=== PATIENT | male | born 1980 | race Caucasian/White ===

== ENCOUNTER 2023-05-14 19:45 | Inpatient (IN) | payer OTHER, SELFPAY ==
[2023-05-14] VITALS (17 sets, daily range): BP systolic 133–159; BP diastolic 77–101; PULSE 92–107; TEMP 37.4; O2SAT 96–99; BMI 37.9
--- NOTE | 2023-05-14 20:03 | ECG_ITS ---
The [facility] Test Date: 2023-05-14 Pat Name: CELNIA NORRIS Department: Room: - Gender: Male Director Of Infection Control: : 1980 Requested By: ALYSHA BEST Order Number: [id number] Reading MD: ALYSHA BEST Measurements Intervals [place] Rate: 101 P: 40 OR: 154 QRS: -5 QRSD: 88 T: -13 QT: 300 QTc: 358 Interpretive Statements 1120 Sinus tachycardia 5222 Moderate voltage criteria for LVH, may be normal variant T wave inversions in inf leads - III and aVF, possible inf wall ischemia 9150 abnormal ECG No previous ECG available for comparison Electronically Signed On 05-15-2023 5:22:53 EDT by ALYSHA BEST
--- NOTE | 2023-05-14 21:28 | CT_ITS ---
[address] [address] Patient Name: CELINA NORRIS MRN: [id number] date: 1980 Sex: M Assigned Patient Location: ER Current Patient Location: ER Accession/Order Number: [id number] Exam Date: 05/14/2023 21:50 Report Date: 05/14/2023 22:50 At the request of: FABIO SAHNI Procedure: CT abdomen pelvis w con CT ABDOMEN AND PELVIS WITH CONTRAST: INDICATION: Upper abd pain. COMPARISON: Right upper quadrant ultrasound 05/19/2021.. TECHNIQUE: Helical CT images of the abdomen and pelvis were obtained after the administration of intravenous contrast. Dose reduction techniques were achieved by using automated exposure control and/or adjustment of mA and/or kV according to patient size and/or use of iterative reconstruction technique. FINDINGS: LOWER CHEST: Mild bibasilar atelectasis. LIVER: Mild to moderate fatty infiltration. GALLBLADDER AND BILIARY SYSTEM: Normal. SPLEEN: Normal. PANCREAS: Mild fatty replacement of the pancreatic head. There is mild peripancreatic stranding around the pancreatic head and proximal body.. ADRENAL GLANDS: Normal. KIDNEYS AND URETERS: Normal. VASCULATURE: Diffuse atherosclerotic calcification. There is a filling defect within the splenic vein near the portosplenic confluence, extending into the main portal vein and the left and right portal veins consistent with thrombosis. RETROPERITONEUM AND LYMPH NODES: Normal, with no lymphadenopathy. GASTROINTESTINAL TRACT/MESENTERY: Possible mild duodenal wall thickening with adjacent fat stranding suspicious for duodenitis. Multiple diverticula in the colon with no acute diverticulitis. No ascites. Normal appendix. BLADDER: Normal. REPRODUCTIVE SYSTEM: Normal prostate. BODY WALL: Moderate fat-containing umbilical hernia. BONES: Bilateral pars defects at L5 with grade 1 anterolisthesis at L5-S1. CT/CT abdomen pelvis w con IMPRESSION: 1. Portal and splenic vein thrombosis as described above. This is favored to be secondary to acute pancreatitis as there is mild peripancreatic fat stranding also noted. There is no evidence of pancreatic necrosis. 2. Mild duodenal wall thickening suspicious for reactive or less likely primary duodenitis. 3. Fatty liver. 4. Fat-containing umbilical hernia. 5. Colonic diverticulosis. 6. Grade 1 anterolisthesis at L5-S1 due to pars defects. Electronically authenticated by: DULCE ZAIDI Date: 05/14/2023 22:50
--- NOTE | 2023-05-14 21:28 | XR_ITS ---
The [address] [address] Patient Name: CELINA NORRIS MRN: [id number] date: 1980 Sex: M Assigned Patient Location: ER Current Patient Location: ER Accession/Order Number: [id number] Exam Date: 05/14/2023 21:50 Report Date: 05/14/2023 22:34 At the request of: FABIO SAHNI Procedure: XR chest 1V EXAM: XR chest 1V HISTORY: SOB and epigastric pain for few days. COMPARISON: No comparison chest imaging available at the time of dictation. TECHNIQUE: Single frontal view chest x-ray FINDINGS: Mild linear lung atelectasis at the bilateral lower lung. No lung consolidation, large pleural effusion, pneumothorax, or acute bony abnormality. Cardiac size is unremarkable. XR/XR chest 1V IMPRESSION: No radiographic evidence for acute chest abnormality. Electronically authenticated by: LESA GONZALEZ Date: 05/14/2023 22:34
--- NOTE | 2023-05-14 21:29 | ED_ITS ---
HPI - Abdominal Pain General Chief Complaint: Abdominal Pain Stated Complaint: CHEST PAIN/ ABD PAIN Time Seen by Provider: 05/14/23 21:15 Source: patient Mode of arrival: walk-in History of Present Illness HPI narrative: 43-year-old male presents for epigastric abdominal pain. This started 4 to 5 days ago. He was seen by his PCP who diagnosed a UTI and started him on Levaquin. The pain in the epigastric area has gotten worse and he has a small amount of pain in the bilateral flank area as well. No injury. He gets short of breath easily with exertion. No fever vomiting constipation or diarrhea. He does not complain of cough or fever. Related Data Allergies Allergy/AdvReac Type Severity Reaction Status Date / Time No Known Drug Allergies Allergy Verified 05/14/23 20:01 Review of Systems ROS Narrative A ten point review of systems is negative except as noted above. Exam Narrative Exam Narrative: Nurses note and vital signs reviewed and patient is not hypoxic. General: The patient appears well and in no apparent distress. Patient is resting comfortably on cart. Skin: Warm, dry, no pallor noted. There is no rash noted. Head: Normocephalic, atraumatic Eye: Normal conjunctiva, no drainage Ears, Nose, Mouth, and Throat: oral mucosa is moist. Nares patent. Cardiovascular: Regular Rate and Rhythm Respiratory: Patient is in no distress, no accessory muscle use, lungs are clear to auscultation, no wheezing, rales or rhonchi Back: non-tender GI: Tender in the epigastric area and to a lesser degree in the right upper quadrant. No masses. Musculoskeletal: The patient has no evidence of calf tenderness, no pitting edema, symmetrical pulses noted bilaterally Neurological: A&O, normal speech Psychiatric: Cooperative Constitutional Vital Signs, click to edit/add: Last Vital Signs Temp 99.4 F 05/14/23 19:52 Pulse 98 H 05/14/23 23:00 Resp 20 05/14/23 21:14 BP 137/81 05/14/23 23:00 Pulse Ox 97 05/14/23 23:00 O2 Del Method Room Air 05/14/23 21:14 Course Vital Signs Vital signs: Vital Signs Temperature 99.4 F 05/14/23 19:52 Pulse Rate 92 H 05/14/23 19:52 Blood Pressure 159/101 H 05/14/23 19:52 Pulse Oximetry 97 05/14/23 19:52 Oxygen Delivery Method Room Air 05/14/23 19:52 Temperature 99.4 F 05/14/23 19:52 Pulse Rate 98 H 05/14/23 23:00 Respiratory Rate 20 05/14/23 21:14 Blood Pressure 137/81 05/14/23 23:00 Pulse Oximetry 97 05/14/23 23:00 Oxygen Delivery Method Room Air 05/14/23 21:14 MDM - Abdominal Pain MDM Narrative Medical decision making narrative: CAT scan per radiologist shows portal vein thrombosis as well as mild pancreatitis and mild duodenitis. Amylase and lipase are normal. LFTs are normal, the total bilirubin is 1.6. Case discussed with Dr. Rm. He suggested that the patient would be able to be admitted here on a heparin drip. I spoke to Dr. Orellana who requested the patient be transferred to tertiary care facility. Family has requested transfer to [facility] and the patient is stable and agreeable for transfer. I spoken to the hospitalist there who accepts the patient. Differential Diagnosis Differential diagnosis: Likely abdominal pain, acute appendicitis, calculus of kidney, constipation, diverticulitis, gastroenteritis, pancreatitis and small bowel obstruction Lab Data Attestation: I reviewed the patient's lab results. Labs: Lab Results 05/14/23 05/14/23 Range/Units 21:33 21:35 WBC 12.5 H (4.0-11.0) 10^3/uL RBC 5.53 (4.70-6.10) 10^6/uL Hgb 15.2 (14.0-18.0) g/dL Hct 46.6 (42.0-54.0) % MCV 84.3 (80.0-94.0) fL MCH 27.5 (25.9-34.0) pg MCHC 32.6 (29.9-35.2) g/dL RDW 13.2 (11.0-15.0) % Plt Count 228 (150-450) 10^3/uL MPV 9.9 (9.5-13.5) fL Neut % (Auto) 61.3 (43.0-75.0) % Lymph % (Auto) 26.5 (20.5-60.0) % [place] % (Auto) 10.8 (1.7-12.0) % Eos % (Auto) 0.6 L (0.9-7.0) % Baso % (Auto) 0.6 (0.2-2.0) % Neut # (Auto) 7.6 H (1.4-6.5) 10^3/uL Lymph # (Auto) 3.3 (1.2-3.8) 10^3/uL [place] # (Auto) 1.3 H (0.3-0.8) 10^3/uL Eos # (Auto) 0.1 (0.0-0.7) 10^3/uL Baso # (Auto) 0.1 (0.0-0.1) 10^3/uL Abs Immat Gran (auto) 0.03 (0.00-0.03) 10^3/uL Imm/Tot Granulo (auto) 0.2 (0.0-0.5) % PT 10.9 (9.0-11.6) sec INR 1.03 APTT 28.2 (22.3-36.2) sec Sodium 140 (136-145) mmol/L Potassium 3.9 (3.5-5.1) mmol/L Chloride 103 (98-107) mmol/L Carbon Dioxide 26.6 (21.0-32.0) mmol/L Anion Gap 14.3 BUN 14.0 (7.0-18.0) mg/dL Creatinine 1.01 (0.70-1.30) mg/dL Est GFR ( Amer) >60 (>=60) Est GFR (Non-Af Amer) >60 (>=60) BUN/Creatinine Ratio 13.9 Glucose 100 (74-106) mg/dL Lactate 0.9 (0.4-2.0) mmol/L Calcium 9.5 (8.5-10.1) mg/dL Total Bilirubin 1.6 H (0.2-1.0) mg/dL Direct Bilirubin 0.3 H (0.0-0.2) mg/dL AST 22 (15-37) U/L ALT 53 (16-63) U/L Alkaline Phosphatase 80 (46-116) U/L Troponin I High Sens <4.0 L (4.0-76.1) pg/mL Total Protein 7.4 (6.4-8.2) g/dL Albumin 3.2 L (3.4-5.0) g/dL Globulin 4.2 g/dL Albumin/Globulin Ratio 0.8 Amylase 39 (25-115) U/L Lipase 21.0 (16.0-77.0) U/L Urine Color Yellow (YELLOW) Urine Clarity Clear (CLEAR) Urine pH 6.5 (5.0-9.0) Ur Specific [place] >=1.030 A (1.005-1.025) Urine Protein Negative (NEG/TRACE) mg/dL Urine Glucose (UA) Negative (NEGATIVE) mg/dL Urine Ketones Trace A (NEGATIVE) mg/dL Urine Occult Blood Negative (NEGATIVE) Urine Nitrite Negative (NEGATIVE) Urine Bilirubin Negative (NEGATIVE) Urine Urobilinogen >=8.0 (0.2-1.0) EU/dL Ur Leukocyte Esterase Negative (NEGATIVE) Urine RBC None seen (0-2) #/HPF Urine WBC None seen (NONE SEEN) #/HPF Ur Squamous Epith Cells None seen (NONE/RARE) #/LPF Urine Crystals None seen (None Seen) #/HPF Urine Bacteria None seen (NONE SEEN) #/HPF Urine Casts None seen (NONE SEEN) #/LPF Urine Mucus Small A (NONE SEEN) Ur Culture Indicated? No Imaging Data CT scan - abdomen: Radiologist's impression: ITS Impressions Abdomen/Pelvis CT 05/14/23 21:28 IMPRESSION: 1. Portal and splenic vein thrombosis as described above. This is favored to be secondary to acute pancreatitis as there is mild peripancreatic fat stranding also noted. There is no evidence of pancreatic necrosis. 2. Mild duodenal wall thickening suspicious for reactive or less likely primary duodenitis. 3. Fatty liver. 4. Fat-containing umbilical hernia. 5. Colonic diverticulosis. 6. Grade 1 anterolisthesis at L5-S1 due to pars defects. Electronically authenticated by: DULCE ZAIDI Date: 05/14/2023 22:50 Chest X-Ray 05/14/23 21:28 IMPRESSION: No radiographic evidence for acute chest abnormality. Electronically authenticated by: LESA GONZALEZ Date: 05/14/2023 22:34 ECG Data Attestation: I personally reviewed and interpreted this ECG as follows: (EKG on my interpretation shows sinus rhythm with a rate of 101. No acute changes.) Critical Care Time Critical Care Time Critical Care Time: Yes Total Critical Care Time: 45 Attestation: Due to the high probability of sudden and clinically significant deterioration in the patient's condition he/she required the highest level of my preparedness to intervene urgently I provided critical care time including documentation time, medication orders and management, reevaluation, vital sign assessment, ordering and reviewing of lab tests, ordering and reviewing of x-ray studies, and admission orders. Aggregate critical care time is 45 minutes including only time during which I was engaged in work directly related to his/her care and did not include time spent treating other patients simultaneously. Discharge Plan Discharge Chief Complaint: Abdominal Pain Clinical Impression: Portal vein thrombosis, Pancreatitis, Duodenitis Patient Disposition: [facility] Time of Disposition Decision: 00:02 Discharge Location: [facility] Condition: Good Mode of Transportation: EMS
[2023-05-14 21:48] LABS: Basophils Absolute Auto 0.1 10^3/uL (0.0-0.1); Basophils Percent Auto 0.6 % (0.2-2.0); Eosinophils Absolute Auto 0.1 10^3/uL (0.0-0.7); Eosinophils Percent Auto 0.6 % (0.9-7.0); Hematocrit 46.6 % (42.0-54.0); Hemoglobin 15.2 g/dL (14.0-18.0); Immature Granulocytes Abs Auto 0.03 10^3/uL (0.00-0.03); Immature Granulocytes Pct Auto 0.2 % (0.0-0.5); Lymphocytes Absolute Auto 3.3 10^3/uL (1.2-3.8); Lymphocytes Percent Auto 26.5 % (20.5-60.0); Mean Corpuscular HGB Conc 32.6 g/dL (29.9-35.2); Mean Corpuscular Hemoglobin 27.5 pg (25.9-34.0); Mean Corpuscular Volume 84.3 fL (80.0-94.0); Mean Platelet Volume 9.9 fL (9.5-13.5); Monocytes Absolute Auto 1.3 10^3/uL (0.3-0.8); Monocytes Percent Auto 10.8 % (1.7-12.0); Neutrophils Absolute Auto 7.6 10^3/uL (1.4-6.5); Neutrophils Percent Auto 61.3 % (43.0-75.0); Platelet Count 228 10^3/uL (150-450); Red Blood Count 5.53 10^6/uL (4.70-6.10); Red Cell Distribution Width 13.2 % (11.0-15.0); White Blood Count 12.5 10^3/uL (4.0-11.0)
[2023-05-14 21:49] LABS: Bilirubin Urine NEGATIVE (NEGATIVE); Blood Urine NEGATIVE (NEGATIVE); Clarity Urine CLEAR (CLEAR); Color Urine YELLOW (YELLOW); Glucose Urine UA NEGATIVE (NEGATIVE); Ketones Urine TRACE mg/dL (NEGATIVE); Leukocyte Esterase Urine NEGATIVE (NEGATIVE); Nitrite Urine NEGATIVE (NEGATIVE); Protein Urine NEGATIVE (NEG/TRACE); Specific Gravity Urine >=1.030 (1.005-1.025); Urobilinogen Urine >=8.0 EU/dL (0.2-1.0); pH Urine 6.5 (5.0-9.0)
[2023-05-14 21:59] LABS: RBC Urine NONE SEEN #/HPF (0-2); WBC Urine NONE SEEN #/HPF (NONE SEEN)
[2023-05-14 22:00] LABS: Bacteria Urine NONE SEEN #/HPF (NONE SEEN); Cast Seen? NONE SEEN #/LPF (NONE SEEN); Crystals Seen? None Seen #/HPF (None Seen); Mucus Urine SMALL (NONE SEEN); Squamous Epithelial Cell Urine NONE SEEN #/LPF (NONE/RARE); Urine Culture Indicated NO
[2023-05-14 22:07] LABS: Alanine Aminotransferase 53 U/L (16-63); Albumin Globulin Ratio 0.8; Albumin Level 3.2 g/dL (3.4-5.0); Alkaline Phosphatase 80 U/L (46-116); Amylase 39 U/L (25-115); Aspartate Amino Transferase 22 U/L (15-37); Bilirubin Direct 0.3 mg/dL (0.0-0.2); Bilirubin Total 1.6 mg/dL (0.2-1.0); Globulin 4.2 g/dL; Total Protein 7.4 g/dL (6.4-8.2); Troponin I High Sensitivity <4.0 pg/mL (4.0-76.1)
[2023-05-14 22:09] LABS: Anion Gap 14.3; BUN Creatinine Ratio 13.9; Calcium 9.5 mg/dL (8.5-10.1); Carbon Dioxide 26.6 mmol/L (21.0-32.0); Chloride 103 mmol/L (98-107); Estimated GFR (African America >60 (>=60); Estimated GFR (Non-African Ame >60 (>=60); Glucose 100 mg/dL (74-106); Potassium 3.9 mmol/L (3.5-5.1); Sodium 140 mmol/L (136-145)
[2023-05-14 23:17] LABS: INR 1.03; Partial Thromboplastin Time 28.2 sec (22.3-36.2); Prothrombin Time 10.9 sec (9.0-11.6)
[2023-05-14 23:22] LABS: Lactate/Lactic Acid 0.9 mmol/L (0.4-2.0)
[2023-05-14] MEDS: HEPARIN SODIUM (PORCINE) 5,000 UNIT/ML VIAL 8000 UNIT IV (23:31)
[2023-05-14] MEDS: HEPARIN SODIUM,PORCINE/D5W 25,000 UNIT/500 ML IV.SOLN 30 UNIT IV (23:32)
[2023-05-15] VITALS (71 sets, daily range): BP systolic 115–147; BP diastolic 62–122; PULSE 59–121; TEMP 37.2–38.1; O2SAT 89–97; BMI 38.7
[2023-05-15] MEDS: BUTALB/ACETAMINOPHEN/CAFFEINE 50-325-40MG TABLET 1 TAB PO (00:29)
[2023-05-15 06:20] LABS: PTT Heparin Monitor 39.2 sec (48.2-68.6)
--- NOTE | 2023-05-15 10:07 | US_ITS ---
The [address] [address] Patient Name: CELINA NORRIS MRN: [id number] date: 1980 Sex: M Assigned Patient Location: ER Current Patient Location: [place] Accession/Order Number: [id number] Exam Date: 05/15/2023 10:08 Report Date: 05/15/2023 11:13 At the request of: BENJAMIN CROWDER Procedure: US right upper quadrant EXAMINATION: US right upper quadrant HISTORY: Portal hypertension COMPARISON: CT abdomen pelvis 05/14/2023 TECHNIQUE: Transabdominal evaluation of the right upper quadrant. FINDINGS: LIVER: Increased echogenicity suggestive of fatty infiltration. Color Doppler demonstrates patent hepatic veins. PORTAL VEIN: Thrombosed main portal vein with no appreciable blood flow on duplex and color Doppler. Thrombus extends into superior mesenteric vein and splenic vein at their confluence. GALLBLADDER: No visible gallstones, wall thickening, or pericholecystic free fluid. Negative sonographic Fletcher's sign. BILIARY: No abnormal dilation or stones. Common bile duct diameter is within normal limits. PANCREASE: Not well seen. No visible mass, abnormal atrophy, or duct dilation. KIDNEY: No hydronephrosis. No visible mass or stones. Size: 12.0 x 6.0 x 6.67 m US/US right upper quadrant IMPRESSION: 1. Thrombosed, completely occluded main portal vein with clot extending slightly retrograde into the main portal vein and splenic vein. 2. No appreciable enlarged collateral vessels, splenic vein enlargement, or enlarged spleen to suggest significant or long-standing portal hypertension. Electronically authenticated by: DULCE STUBBS Date: 05/15/2023 11:13
--- NOTE | 2023-05-15 10:32 | P.HP_ITS ---
HPI H&P: HPI History of Present Illness Chief complaint: CHEST PAIN/ ABD PAIN Narrative: Patient was seen and evaluated in the office not long ago, felt to have a UTI. Placed on antibiotics. Symptoms progressed and late last night presented to the emergency room. In ER patient found to have thrombosed portal and splenic veins. Case was discussed with possible transfer. Vascular was okay with patient staying here on heparin drip. When I saw the patient in the emergency room, his pain was actually somewhat improved. Denies any other complaints other than just an abdominal pressure type sensation. Opioid HPI Opioid Management Most Recent Opioid Data: Last Pain Scale 4 05/15/23 11:53 Last Pain Assessment 05/15/23 18:00 Last ORT Total Score 1 05/15/23 11:38 Last ORT Risk Category Low Risk 05/15/23 11:38 PFSH PFSH Medical History (Updated 05/15/23 @ 11:31 by Kae Mata) Orbital floor (blow-out), closed fracture ?S02.30XA - Fracture of orbital floor, unspecified side, initial encounter for closed fracture (ICD-10) Family History (Updated 05/15/23 @ 11:51 by Kae Mata) Mother Family history of CHF (congestive heart failure) Family history of cancer Family history of hypertension Family history of blood clots Sister Family history of diabetes mellitus Son Family history of diabetes mellitus Grandfather Family history of myocardial infarction Uncle Family history of blood clots Social History (Updated 05/15/23 @ 11:25 by Kae Mata) Within the past year, how often did you have a drink containing alcohol: never Score interpretation: A score less than 4 is consistent with normal alcohol consumption. 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 Known occupational exposures/hazards: No Highest level of school completed/degree received: some college, no degree Are you now , , , , never or living with a partner: In a typical week, how many times do you talk on the telephone with family, friends, or neighbors: 3 or more times per week How often do you get together with friends or relatives: 3 or more times per week How often do you attend jewish or samaritan services: 4 or more times per year Do you belong to any clubs or organizations such as jewish groups unions, fraYotpo or athletic groups, or school groups: yes Total score: 4 Score interpretation: A score of greater than or equal to 2 indicates the lowest level of social isolation. Little interest or pleasure in doing things: not at all Feeling down, depressed, or hopeless: not at all Feel stressed/tense/nervous/anxious/difficulty sleeping: only a little Due to disability, difficulty making decisions: No Do you think of yourself as: straight/heterosexual Gender Identity: male Meds Home Medications and Allergies Home Medications ?Medication ?Instructions ?Recorded ?Confirmed ?Type levofloxacin 750 mg tablet 750 mg PO DAILY 05/15/23 05/15/23 History pantoprazole 40 mg tablet,delayed 40 mg PO DAILY 05/15/23 05/15/23 History release Allergies Allergy/AdvReac Type Severity Reaction Status Date / Time No Known Drug Allergies Allergy Verified 05/14/23 20:01 Exam Constitutional Vital Signs, click to edit/add: Last Vital Signs Temp 99.4 F 05/14/23 19:52 Pulse 93 H 05/15/23 09:00 Resp 20 05/14/23 21:14 BP 119/86 05/15/23 08:30 Pulse Ox 90 L 05/15/23 04:31 O2 Del Method Room Air 05/14/23 21:14 Documenting provider has reviewed patient's vital signs: yes Common normals: no apparent distress Chest Common normals: inspection of chest normal Respiratory Common normals: normal respiratory effort and no retractions GI Common normals: Normal to inspection, nondistended, normoactive bowel sounds present, soft to palpation and non-tender (Mild upper abdominal tenderness, no rebound tenderness) Palpation: no hepatosplenomegaly Results Labs Labs: Short CBC 05/14/23 Range/Units 21:35 WBC 12.5 H (4.0-11.0) 10^3/uL Hgb 15.2 (14.0-18.0) g/dL Hct 46.6 (42.0-54.0) % Plt Count 228 (150-450) 10^3/uL BMP 05/14/23 21:35 Sodium 140 Potassium 3.9 Chloride 103 Carbon Dioxide 26.6 BUN 14.0 Creatinine 1.01 Glucose 100 Calcium 9.5 Liver Function 05/14/23 Range/Units 21:35 Total Bilirubin 1.6 H (0.2-1.0) mg/dL Direct Bilirubin 0.3 H (0.0-0.2) mg/dL AST 22 (15-37) U/L ALT 53 (16-63) U/L Alkaline Phosphatase 80 (46-116) U/L Albumin 3.2 L (3.4-5.0) g/dL Urine 05/14/23 Range/Units 21:33 Urine Color Yellow (YELLOW) Urine Clarity Clear (CLEAR) Urine pH 6.5 (5.0-9.0) Ur Specific [place] >=1.030 A (1.005-1.025) Urine Protein Negative (NEG/TRACE) mg/dL Urine Glucose (UA) Negative (NEGATIVE) mg/dL Assessment and Plan Assessment and Plan (1) Portal vein thrombosis: (2) Pancreatitis: (3) Duodenitis: Plan Sinus tachycardia, uncontrolled hypertension, leukocytosis, hyperbilirubinemia secondary to portal and splenic vein thrombosis-possibly related to pancreatitis with fluid noted around the pancreas although amylase and lipase are negative. Blood cultures are obtained in ER. With the leukocytosis and high risk for infection, place patient on IV antibiotics. Strict n.p.o. status for now. Fatty liver disease-follows an outpatient Moderate protein calorie malnutrition-we will follow as an outpatient Inpatient criteria: Patient with portal vein and splenic vein thrombosis, will consult to vascular and hematology, medically necessary treatment will span 2 midnights. High risk for infection and sepsis.
[2023-05-15 13:12] LABS: Ammonia <10 umol/L (11-32)
[2023-05-15 13:15] LABS: Chol HDL Ratio 4.1; Cholesterol 197 mg/dL (<=200); HDL Cholesterol 48 mg/dL (40-60); LDL Cholesterol Calculated 126.8 mg/dL; Triglycerides 111 mg/dL (<=150); VLDL CHOLESTEROL 22.2 mg/dL
[2023-05-15 13:20] LABS: Lactate/Lactic Acid 1.1 mmol/L (0.4-2.0)
[2023-05-15] MEDS: LACTATED RINGER'S SOLUTION 1,000 ML 100 ML IV (14:11)
[2023-05-15] MEDS: 0.9 % SODIUM CHLORIDE 250 ML 10 ML IV (14:18)
[2023-05-15] MEDS: PIPERACILLIN SODIUM/TAZOBACTAM 3.375 GM in 0.9 % SODIUM CHLORIDE 50 ML IV ×2 (14:19→22:37)
[2023-05-15] MEDS: PANTOPRAZOLE SODIUM 40 MG VIAL IV (14:26)
--- NOTE | 2023-05-15 14:41 | W.PM.PHARM ---
Pharmacy Note Narrative: Pharmacy consulted for heparin drip protocol. Patient started on heparin drip in the ED at the max initial dose of 30 mls/hr. Dose was increased to 32 mls/hr at first PTT check (39), 2nd ptt was at 1130am and was still low at 37 so drip was increased to 34 mls/hr. Explained to Kae, patient's nurse, to follow protocol attached to order and paper that was handed to her. I have asked her to call us with any questions at the next PTT draw.
[2023-05-15 16:07] LABS: Bilirubin Urine SMALL (NEGATIVE); Blood Urine NEGATIVE (NEGATIVE); Clarity Urine CLEAR (CLEAR); Color Urine DK. YELLOW (YELLOW); Glucose Urine UA NEGATIVE (NEGATIVE); Ketones Urine TRACE mg/dL (NEGATIVE); Leukocyte Esterase Urine NEGATIVE (NEGATIVE); Nitrite Urine NEGATIVE (NEGATIVE); Protein Urine NEGATIVE (NEG/TRACE); Specific Gravity Urine >=1.030 (1.005-1.025)
[2023-05-15 16:08] LABS: Bacteria Urine NONE SEEN #/HPF (NONE SEEN); Crystals Seen? None Seen #/HPF (None Seen); Mucus Urine NONE SEEN (NONE SEEN); RBC Urine 0-2 #/HPF (0-2); Squamous Epithelial Cell Urine NONE SEEN #/LPF (NONE/RARE); WBC Urine NONE SEEN #/HPF (NONE SEEN)
[2023-05-15 16:09] LABS: Cast Seen? NONE SEEN #/LPF (NONE SEEN); Urine Culture Indicated ALREADY ORDERED
[2023-05-15 18:38] LABS: PTT Heparin Monitor 29.2 sec (48.2-68.6)
[2023-05-15] MEDS: HEPARIN SODIUM,PORCINE/D5W 25,000 UNIT/500 ML IV.SOLN 37 UNIT IV (18:53)
--- NOTE | 2023-05-15 19:20 | PM.GSHP ---
History of Present Illness History of Present Illness Chief complaint: CHEST PAIN/ ABD PAIN Narrative: 43 Male with portal and splenic vein thrombosis-possibly related to pancreatitis with fluid noted around the pancreas although amylase and lipase are negative. Blood cultures are obtained in ER. Did have low-grade fever last night repeat blood cultures were obtained. His white blood cell count has returned to normal today. Amylase and lipase all normal. At this point we will progress patient's diet to clear liquids for today. If stable tomorrow likely advance diet and discharge on Eliquis. C CA 19 - 9 is negative still uncertain etiology for cause of his portal thrombosis. Review of Systems ROS Status of ROS 10 or more systems reviewed and unremarkable except as noted in history and below [facility] Medical History (Updated 05/15/23 @ 11:31 by Kae Mata) Orbital floor (blow-out), closed fracture ?S02.30XA - Fracture of orbital floor, unspecified side, initial encounter for closed fracture (ICD-10) Family History (Updated 05/15/23 @ 11:51 by Kae Mata) Mother Family history of CHF (congestive heart failure) Family history of cancer Family history of hypertension Family history of blood clots Sister Family history of diabetes mellitus Son Family history of diabetes mellitus Grandfather Family history of myocardial infarction Uncle Family history of blood clots Social History (Updated 05/15/23 @ 11:25 by Kae Mata) Within the past year, how often did you have a drink containing alcohol: never Score interpretation: A score less than 4 is consistent with normal alcohol consumption. 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 Known occupational exposures/hazards: No Highest level of school completed/degree received: some college, no degree Are you now , , , , never or living with a partner: In a typical week, how many times do you talk on the telephone with family, friends, or neighbors: 3 or more times per week How often do you get together with friends or relatives: 3 or more times per week How often do you attend yarsanism or jewish services: 4 or more times per year Do you belong to any clubs or organizations such as yarsanism groups unions, fraternal or athletic groups, or school groups: yes Total score: 4 Score interpretation: A score of greater than or equal to 2 indicates the lowest level of social isolation. Little interest or pleasure in doing things: not at all Feeling down, depressed, or hopeless: not at all Feel stressed/tense/nervous/anxious/difficulty sleeping: only a little Due to disability, difficulty making decisions: No Do you think of yourself as: straight/heterosexual Gender Identity: male Meds Home Medications and Allergies Home Medications ?Medication ?Instructions ?Recorded ?Confirmed ?Type levofloxacin 750 mg tablet 750 mg PO DAILY 05/15/23 05/15/23 History pantoprazole 40 mg tablet,delayed 40 mg PO DAILY 05/15/23 05/15/23 History release apixaban 5 mg tablet (Eliquis) 10 mg (2 x 5 mg) PO BID #60 tabs 05/17/23 Rx Allergies Allergy/AdvReac Type Severity Reaction Status Date / Time No Known Drug Allergies Allergy Verified 05/14/23 20:01 Exam Constitutional Vital Signs, click to edit/add: Last Vital Signs Temp 98.3 F 05/17/23 12:00 Pulse 86 05/17/23 12:00 Resp 18 05/17/23 12:00 BP 118/75 05/17/23 12:00 Pulse Ox 95 05/17/23 12:00 O2 Del Method Room Air 05/17/23 12:00 Common normals: no apparent distress, oriented x3 and no limitations GI Common normals: Normal to inspection, nondistended, normoactive bowel sounds present, soft to palpation, non-tender and no hepatosplenomegaly Results Results Chest x-ray: image reviewed Abdomen CT scan report/results: report reviewed and image reviewed CT scan - pelvis: report reviewed and image reviewed Assessment and Plan Assessment and Plan (1) Portal vein thrombosis: Assessment and Plan: Anticoagulation - Heparin gtt followed by Ana Paula on discharge Serial Exam Hypercoagulability work as an outpatient Will see him at my office here at [place] after discharge Discussed with Dr. العلي (2) Pancreatitis: (3) Duodenitis:
[2023-05-15] MEDS: ACETAMINOPHEN 500 MG TABLET 1000 MG PO (20:58)
[2023-05-16] VITALS (10 sets, daily range): BP systolic 102–138; BP diastolic 51–82; PULSE 85–99; TEMP 36.4–37.2; O2SAT 93–97
[2023-05-16 01:33] LABS: PTT Heparin Monitor 43.4 sec (48.2-68.6)
[2023-05-16 04:08] LABS: CA 19-9 4 U/mL (0-35)
[2023-05-16] MEDS: LACTATED RINGER'S SOLUTION 1,000 ML 100 ML IV ×2 (06:36→20:03)
[2023-05-16] MEDS: PIPERACILLIN SODIUM/TAZOBACTAM 3.375 GM in 0.9 % SODIUM CHLORIDE 50 ML IV ×2 (06:37→22:14)
[2023-05-16 07:47] LABS: Basophils Absolute Auto 0.1 10^3/uL (0.0-0.1); Basophils Percent Auto 0.7 % (0.2-2.0); Eosinophils Absolute Auto 0.1 10^3/uL (0.0-0.7); Hematocrit 42.1 % (42.0-54.0); Hemoglobin 13.7 g/dL (14.0-18.0); Immature Granulocytes Abs Auto 0.02 10^3/uL (0.00-0.03); Immature Granulocytes Pct Auto 0.2 % (0.0-0.5); Lymphocytes Absolute Auto 3.1 10^3/uL (1.2-3.8); Lymphocytes Percent Auto 30.3 % (20.5-60.0); Mean Corpuscular HGB Conc 32.5 g/dL (29.9-35.2); Mean Corpuscular Hemoglobin 27.3 pg (25.9-34.0); Mean Corpuscular Volume 83.9 fL (80.0-94.0); Mean Platelet Volume 10.1 fL (9.5-13.5); Monocytes Absolute Auto 1.2 10^3/uL (0.3-0.8); Monocytes Percent Auto 11.7 % (1.7-12.0); Neutrophils Absolute Auto 5.7 10^3/uL (1.4-6.5); Neutrophils Percent Auto 56.1 % (43.0-75.0); Platelet Count 200 10^3/uL (150-450); Red Blood Count 5.02 10^6/uL (4.70-6.10); Red Cell Distribution Width 13.2 % (11.0-15.0); White Blood Count 10.2 10^3/uL (4.0-11.0)
[2023-05-16 08:02] LABS: Ammonia 28 umol/L (11-32)
[2023-05-16 08:23] LABS: PTT Heparin Monitor 40.2 sec (48.2-68.6)
[2023-05-16 08:26] LABS: Alanine Aminotransferase 38 U/L (16-63); Albumin Globulin Ratio 0.7; Albumin Level 2.8 g/dL (3.4-5.0); Alkaline Phosphatase 70 U/L (46-116); Amylase 39 U/L (25-115); Anion Gap 13.2; Aspartate Amino Transferase 16 U/L (15-37); BUN Creatinine Ratio 12.2; Bilirubin Total 2.3 mg/dL (0.2-1.0); Calcium 9.1 mg/dL (8.5-10.1); Carbon Dioxide 27.4 mmol/L (21.0-32.0); Chloride 100 mmol/L (98-107); Estimated GFR (African America >60 (>=60); Estimated GFR (Non-African Ame >60 (>=60); Globulin 4.1 g/dL; Glucose 107 mg/dL (74-106); Potassium 3.6 mmol/L (3.5-5.1); Sodium 137 mmol/L (136-145); Total Protein 6.9 g/dL (6.4-8.2)
[2023-05-16] MEDS: HEPARIN SODIUM,PORCINE/D5W 25,000 UNIT/500 ML IV.SOLN 43 UNIT IV ×2 (08:49→20:03)
[2023-05-16] MEDS: ACETAMINOPHEN 500 MG TABLET 1000 MG PO ×2 (08:53→20:05)
--- NOTE | 2023-05-16 10:41 | P.PN_ITS ---
Progress Note: Subjective Subjective Interval history: Patient with significant more pressure in his upper abdomen. That really progressed but not really improved. Discussed this would not be expected to improve with the thrombus present. Does have a bit of a headache but has not had any caffeine intake for over a day. Exam Constitutional Vital Signs, click to edit/add: Last Vital Signs Temp 98.6 F 05/16/23 08:00 Pulse 96 H 05/16/23 08:00 Resp 18 05/16/23 08:00 BP 136/79 05/16/23 08:00 Pulse Ox 94 L 05/16/23 09:13 O2 Del Method Room Air 05/16/23 09:13 Documenting provider has reviewed patient's vital signs: yes Common normals: no apparent distress Chest Common normals: inspection of chest normal Respiratory Common normals: normal respiratory effort and no retractions GI Common normals: Normal to inspection, nondistended, normoactive bowel sounds present, soft to palpation and non-tender (Mild upper abdominal tenderness, no rebound tenderness) Palpation: no hepatosplenomegaly Progress Note: Objective Labs Labs: Short CBC 05/16/23 Range/Units 07:00 WBC 10.2 (4.0-11.0) 10^3/uL Hgb 13.7 L (14.0-18.0) g/dL Hct 42.1 (42.0-54.0) % Plt Count 200 (150-450) 10^3/uL BMP 05/16/23 07:00 Sodium 137 Potassium 3.6 Chloride 100 Carbon Dioxide 27.4 BUN 12.0 Creatinine 0.98 Glucose 107 H Calcium 9.1 Liver Function 05/16/23 Range/Units 07:00 Total Bilirubin 2.3 H (0.2-1.0) mg/dL AST 16 (15-37) U/L ALT 38 (16-63) U/L Alkaline Phosphatase 70 (46-116) U/L Albumin 2.8 L (3.4-5.0) g/dL Urine 05/15/23 Range/Units 15:43 Urine Color Dk. yellow (YELLOW) Urine Clarity Clear (CLEAR) Urine pH 6.0 (5.0-9.0) Ur Specific [place] >=1.030 A (1.005-1.025) Urine Protein Negative (NEG/TRACE) mg/dL Urine Glucose (UA) Negative (NEGATIVE) mg/dL Progress Note: A&P Assessment and Plan (1) Portal vein thrombosis: (2) Pancreatitis: (3) Duodenitis: Plan Admission Findings: Sinus tachycardia, uncontrolled hypertension, leukocytosis, hyperbilirubinemia secondary to portal and splenic vein thrombosis-possibly related to pancreatitis with fluid noted around the pancreas although amylase and lipase are negative. Blood cultures are obtained in ER. Did have low-grade fever last night repeat blood cultures were obtained. His white blood cell count has returned to normal today. Amylase and lipase all normal. At this point we will progress patient's diet to clear liquids for today. If stable tomorrow likely advance diet and discharge on Eliquis. Case discussed extensively with hematology and vascular. CA 19 - 9 is negative still uncertain etiology for cause of his portal thrombosis. With laboratory findings and CT findings I suspect the thrombus happened prior to the fluid collection around the pancreas. Only other thought is acute pancreatitis happened prior and amylase and lipase have improved since that initial onset Fatty liver disease-follows an outpatient Moderate protein calorie malnutrition-we will follow as an outpatient Inpatient criteria: Patient with portal vein and splenic vein thrombosis, will consult to vascular and hematology, medically necessary treatment will span 2 midnights. High risk for infection and sepsis. ?
--- NOTE | 2023-05-16 10:53 | CM.NOTE ---
Rounds made with Dr. العلي, pt continues on heparin drip. Vascular will evaluate pt today for further recommendations. No discharge today.
[2023-05-16 13:46] LABS: PTT Heparin Monitor 44.1 sec (48.2-68.6)
--- NOTE | 2023-05-16 14:02 | PC.NURSE ---
clear liquid diet
--- NOTE | 2023-05-16 14:09 | PC.NURSE ---
[id number] lab called to report critical ptt 44.1 adjusted medication per protocol with jarrell moralez rn
--- NOTE | 2023-05-16 15:34 | PC.NURSE ---
patient up ambulating in the hallway . Patient just got out of the shower. States he feels better than this am.
[2023-05-16] MEDS: PANTOPRAZOLE SODIUM 40 MG VIAL IV (20:03)
[2023-05-16 20:13] LABS: PTT Heparin Monitor 42.4 sec (48.2-68.6)
[2023-05-17] VITALS: BP 128/73; PULSE 83; TEMP 36.8; O2SAT 95
[2023-05-17 02:08] LABS: PTT Heparin Monitor 42.3 sec (48.2-68.6)
[2023-05-17 03:38] VITALS: BP 132/70; PULSE 87; TEMP 36.9; O2SAT 96
[2023-05-17 07:18] LABS: Basophils Absolute Auto 0.1 10^3/uL (0.0-0.1); Basophils Percent Auto 0.8 % (0.2-2.0); Eosinophils Absolute Auto 0.1 10^3/uL (0.0-0.7); Eosinophils Percent Auto 1.5 % (0.9-7.0); Hematocrit 39.9 % (42.0-54.0); Hemoglobin 13.1 g/dL (14.0-18.0); Immature Granulocytes Abs Auto 0.03 10^3/uL (0.00-0.03); Immature Granulocytes Pct Auto 0.3 % (0.0-0.5); Lymphocytes Absolute Auto 2.8 10^3/uL (1.2-3.8); Mean Corpuscular HGB Conc 32.8 g/dL (29.9-35.2); Mean Corpuscular Hemoglobin 27.6 pg (25.9-34.0); Mean Platelet Volume 10.1 fL (9.5-13.5); Monocytes Percent Auto 10.9 % (1.7-12.0); Neutrophils Percent Auto 55.5 % (43.0-75.0); Platelet Count 231 10^3/uL (150-450); Red Blood Count 4.75 10^6/uL (4.70-6.10); White Blood Count 9.1 10^3/uL (4.0-11.0)
[2023-05-17 07:32] LABS: Ammonia <10 umol/L (11-32)
[2023-05-17 07:37] LABS: Alanine Aminotransferase 36 U/L (16-63); Albumin Globulin Ratio 0.7; Albumin Level 2.8 g/dL (3.4-5.0); Alkaline Phosphatase 73 U/L (46-116); Amylase 40 U/L (25-115); Anion Gap 14.2; Aspartate Amino Transferase 15 U/L (15-37); BUN Creatinine Ratio 8.2; Bilirubin Total 1.4 mg/dL (0.2-1.0); Calcium 9.1 mg/dL (8.5-10.1); Carbon Dioxide 27.4 mmol/L (21.0-32.0); Chloride 101 mmol/L (98-107); Estimated GFR (African America >60 (>=60); Estimated GFR (Non-African Ame >60 (>=60); Globulin 4.3 g/dL; Glucose 99 mg/dL (74-106); Potassium 3.6 mmol/L (3.5-5.1); Sodium 139 mmol/L (136-145); Total Protein 7.1 g/dL (6.4-8.2)
[2023-05-17 08:00] VITALS: BP 119/73; PULSE 68; PULSE 89; TEMP 36.5; O2SAT 95
[2023-05-17 08:48] VITALS: O2SAT 94
--- NOTE | 2023-05-17 09:18 | P.DS_ITS ---
DS: Providers Provider Date of admission: 05/15/23 12:28 Primary care physician: Roberto العلي MD Consults: 05/15/23 12:13 Consult to Pharmacy Routine Consulting Provider: Reason for consultation: heparin sliding scale Has provider been notified: No 05/15/23 12:28 Consult to Vascular Surgery Routine Consulting Provider: Dariana Rm Reason for consultation: Portal vein thrombosis Has provider been notified: Yes 05/15/23 12:31 Consult to Oncology Routine Consulting Provider: Yanet Chandler Reason for consultation: Coagulopathy work up Has provider been notified: No DS: Diagnosis Discharge Diagnosis (1) Portal vein thrombosis: (2) Pancreatitis: (3) Duodenitis: Plan Admission Findings: Sinus tachycardia, uncontrolled hypertension, leukocytosis, hyperbilirubinemia secondary to portal and splenic vein thrombosis-possibly related to pancreatitis with fluid noted around the pancreas although amylase and lipase are negative. Blood cultures are obtained in ER. Did have low-grade fever last night repeat blood cultures were obtained. His white blood cell count has returned to normal today. Amylase and lipase all normal. At this point we will progress patient's diet to clear liquids for today. If stable tomorrow likely advance diet and discharge on Eliquis. Case discussed extensively with hematology and vascular. CA 19 - 9 is negative still uncertain etiology for cause of his portal thrombosis. With laboratory findings and CT findings I suspect the thrombus happened prior to the fluid collection around the pancreas. Only other thought is acute pancreatitis happened prior and amylase and lipase have improved since that initial onset Fatty liver disease-follows an outpatient Moderate protein calorie malnutrition-we will follow as an outpatient Inpatient criteria: Patient with portal vein and splenic vein thrombosis, will consult to vascular and hematology, medically necessary treatment will span 2 midnights. High risk for infection and sepsis. ? ? DS: Summary Hospital Course Hospital Course: Was seen and evaluated in the office with abdominal pain felt consistent with bladder infection was treated with antibiotics. Pain became worse and so presented to the emergency room. The emergency room found to have possible mild pancreatitis but portal and splenic vein thrombosis was noted as well. Case was discussed with vascular surgery who recommended placing patient on a heparin protocol. NPO. Serial abdominal exams. Throughout the hospitalization he had no acute abdominal findings. He did have a low-grade fever. At this point at the time of discharge all blood cultures have returned as negative. His white blood cell count has returned to normal. His amylase and lipase are normal after eating. At this point this morning he was transitioned to Eliquis. Tolerating breakfast and lunch he will be discharged home in improving condition. Medications see list. He is to follow-up with hematology, vascular and myself next week. Time Spent with Patient Time attestation: Total time spent providing and/or coordinating discharge services: Exam Constitutional Vital Signs, click to edit/add: Last Vital Signs Temp 98.4 F 05/17/23 03:38 Pulse 87 05/17/23 03:38 Resp 19 05/17/23 03:38 BP 132/70 05/17/23 03:38 Pulse Ox 94 L 05/17/23 08:48 O2 Del Method Room Air 05/17/23 08:48 Documenting provider has reviewed patient's vital signs: yes Common normals: no apparent distress Chest Common normals: inspection of chest normal Respiratory Common normals: normal respiratory effort and no retractions GI Common normals: Normal to inspection, nondistended, normoactive bowel sounds present, soft to palpation and non-tender (Mild upper abdominal tenderness, no rebound tenderness) Palpation: no hepatosplenomegaly DS: Data Data Completed and Pending Labs on day of discharge: Labs from last 24 hours 05/17/23 05/17/23 05/16/23 07:03 00:51 19:14 WBC 9.1 RBC 4.75 Hgb 13.1 L Hct 39.9 L MCV 84.0 MCH 27.6 MCHC 32.8 RDW 13.0 Plt Count 231 MPV 10.1 Neut % (Auto) 55.5 Lymph % (Auto) 31.0 [place] % (Auto) 10.9 Eos % (Auto) 1.5 Baso % (Auto) 0.8 Neut # (Auto) 5.0 Lymph # (Auto) 2.8 [place] # (Auto) 1.0 H Eos # (Auto) 0.1 Baso # (Auto) 0.1 Abs Immat Gran (auto) 0.03 Imm/Tot Granulo (auto) 0.3 PTT (Heparin Absorb) 42.3 L* 42.4 L* Sodium 139 Potassium 3.6 Chloride 101 Carbon Dioxide 27.4 Anion Gap 14.2 BUN 8.0 Creatinine 0.97 Est GFR ( Amer) >60 Est GFR (Non-Af Amer) >60 BUN/Creatinine Ratio 8.2 Glucose 99 Calcium 9.1 Total Bilirubin 1.4 H AST 15 ALT 36 Alkaline Phosphatase 73 Ammonia <10 L Total Protein 7.1 Albumin 2.8 L Globulin 4.3 Albumin/Globulin Ratio 0.7 Amylase 40 05/16/23 13:05 WBC RBC Hgb Hct MCV MCH MCHC RDW Plt Count MPV Neut % (Auto) Lymph % (Auto) [place] % (Auto) Eos % (Auto) Baso % (Auto) Neut # (Auto) Lymph # (Auto) [place] # (Auto) Eos # (Auto) Baso # (Auto) Abs Immat Gran (auto) Imm/Tot Granulo (auto) PTT (Heparin Absorb) 44.1 L* Sodium Potassium Chloride Carbon Dioxide Anion Gap BUN Creatinine Est GFR ( Amer) Est GFR (Non-Af Amer) BUN/Creatinine Ratio Glucose Calcium Total Bilirubin AST ALT Alkaline Phosphatase Ammonia Total Protein Albumin Globulin Albumin/Globulin Ratio Amylase Discharge Plan Discharge Disposition: Home, Self-Care Condition: Good Discharge Medications: New Eliquis 5 mg Tablet 10 mg PO BID Qty: 60 11RF Rx Instructions: 2 po BID for 6 days then 1 po BID Continued levofloxacin 750 mg tablet 750 mg PO DAILY Patient Comments: 05/10-05/19 pantoprazole 40 mg tablet,delayed release (/EC) 40 mg PO DAILY Print Language: Korean Patient Instructions: Apixaban (By mouth) (Eliquis), Pancreatitis (DC), Duodenitis (DC) Forms: Portal Instructions Follow Up Appointments: May 22 @ 1:45pm with Dr. Chandler [facility] [phone], [phone]. [phone] Please bring medications in their original bottles to this appt. May 24 @ 1:45pm with Dr. العلي [phone] Thurs. May 24 @ 3pm with Dr. Rm - please arrive at 2:45 [facility] [address] , [place] [phone] Discharge Date/Time: 05/17/23 15:44
--- NOTE | 2023-05-17 09:31 | CM.NOTE ---
Rounds made with Dr. العلي, pt will discharge to home today. Pt will start Eliquis and f/u with Dr. العلي.
[2023-05-17] MEDS: PIPERACILLIN SODIUM/TAZOBACTAM 3.375 GM in 0.9 % SODIUM CHLORIDE 50 ML IV (09:40)
[2023-05-17] MEDS: APIXABAN 5 MG TABLET 10 MG PO (09:40)
[2023-05-17 12:00] VITALS: BP 118/75; PULSE 86; TEMP 36.8; O2SAT 95
--- NOTE | 2023-05-17 16:05 | CM.NOTE ---
Discussed with pt about new home medication Eliquis and reason for taking medication. Pt was given 30 day free trial card and 10 dollar co-pay card. Pt verbalizes understanding of importance of taking medication. Educational paper also given to pt.
--- NOTE | 2023-05-23 15:03 | CM.DCFOLLOWU ---
1st attempt discharge follow up call, no answer on 05/23/23
--- NOTE | 2023-05-24 15:32 | CM.DCFOLLOWU ---
Person spoke with:patient How are you feeling? well How is your pain? no pain Did you understand your discharge instructions? yes Do you have any questions about your discharge instructions? no Were you given any prescriptions at discharge? yes Were you able to get your prescriptions filled? yes Do you understand how to take your medications as ordered? yes Do you have any questions about your follow up appointment and do you plan to keep your follow up appointment? no questions, reviewed follow ups with patient Is there anything else that you would like to discuss? Did ask about FMLA paperwork, he is going to reach out to Dr. العلي's office with questions Questions/Comments/Concerns/Other: N/A
== END 2023-05-17 15:44 | disposition home or self-care (01) | DRG 441 ==
LOC: ER 05-15 10:07 → MS 05-15 11:06
PROVIDERS: Emergency Medicine; Admitting Provider Family Medicine; Emergency Provider Emergency Medicine Emergency Medical Services; PCP Family Medicine; Visit Provider Family Medicine
DX: I81 Portal vein thrombosis (principal); K85.90 Acute pancreatitis without necrosis or infection, unspecified; E44.0 Moderate protein-calorie malnutrition; I82.890 Acute embolism and thrombosis of other specified veins; R50.9 Fever, unspecified; I10 Essential (primary) hypertension; K29.80 Duodenitis without bleeding; K76.0 Fatty (change of) liver, not elsewhere classified; Z68.38 Body mass index [BMI] 38.0-38.9, adult; Z87.891 Personal history of nicotine dependence; Z82.49 Family history of ischemic heart disease and other diseases of the circulatory system
CPT/HCPCS: 36415; 71045; 74177; 76705; 80048; 80053; 80061; 80076; 81001; 82140; 82150; 83605; 83690; 83880; 84484; 85025; 85610; 85730; 86301; 87040; 87086; 93005; 94667; 94668; 94761; 96365; 96366; 96367; 96368; 96375; 96376; 99285; Q9967

== ENCOUNTER 2023-05-23 07:35 | Outpatient (RCR) | payer OTHER, SELFPAY ==
[2023-05-25 15:08] LABS: Anticardiolipin Ab, IgG, Qn <9 GPL U/mL (0-14)
[2023-05-28 14:08] LABS: Beta-2 Glycoprotein I Ab, IgA <9 (0-25); Beta-2 Glycoprotein I Ab, IgG <9 (0-20); Beta-2 Glycoprotein I Ab, IgM <9 (0-32)
== END 2023-06-13 23:59 | disposition home or self-care (01) ==
LOC: INF 07:35
PROVIDERS: PCP Family Medicine; Visit Provider Internal Medicine Hematology & Oncology
DX: I81 Portal vein thrombosis (principal); D68.9 Coagulation defect, unspecified
CPT/HCPCS: 36415; 81241; 85210; 86146; 86147; 86148; G0463

== ENCOUNTER 2023-06-15 07:35 | Outpatient (RCR) | payer OTHER, SELFPAY | END 2023-07-14 23:59 | disposition home or self-care (01) | LOC: INF 07:35 | PROVIDERS: PCP Family Medicine; Visit Provider Internal Medicine Hematology & Oncology | DX: I81 Portal vein thrombosis (principal); D68.9 Coagulation defect, unspecified; Z87.891 Personal history of nicotine dependence; I82.890 Acute embolism and thrombosis of other specified veins | CPT/HCPCS: 81270; G0463 ==

== ENCOUNTER 2023-08-08 07:35 | Outpatient (RCR) | payer OTHER, SELFPAY | END 2023-08-09 10:21 | disposition home or self-care (01) | LOC: INF 07:35 | PROVIDERS: PCP Family Medicine; Visit Provider Internal Medicine Hematology & Oncology | DX: I81 Portal vein thrombosis (principal); D68.9 Coagulation defect, unspecified | CPT/HCPCS: G0463 ==

== ENCOUNTER 2023-11-14 07:26 | Outpatient (RCR) | payer OTHER, SELFPAY ==
[2023-11-14 09:31] LABS: Basophils Percent Auto 0.8 % (0.2-2.0); Eosinophils Absolute Auto 0.1 10^3/uL (0.0-0.7); Eosinophils Percent Auto 1.7 % (0.9-7.0); Hematocrit 46.5 % (42.0-54.0); Hemoglobin 15.7 g/dL (14.0-18.0); Immature Granulocytes Abs Auto 0.01 10^3/uL (0.00-0.03); Immature Granulocytes Pct Auto 0.2 % (0.0-0.5); Lymphocytes Absolute Auto 1.8 10^3/uL (1.2-3.8); Lymphocytes Percent Auto 37.1 % (20.5-60.0); Mean Corpuscular HGB Conc 33.8 g/dL (29.9-35.2); Mean Corpuscular Hemoglobin 27.4 pg (25.9-34.0); Mean Corpuscular Volume 81.2 fL (80.0-94.0); Mean Platelet Volume 9.3 fL (9.5-13.5); Monocytes Absolute Auto 0.4 10^3/uL (0.3-0.8); Monocytes Percent Auto 8.6 % (1.7-12.0); Neutrophils Absolute Auto 2.5 10^3/uL (1.4-6.5); Neutrophils Percent Auto 51.6 % (43.0-75.0); Platelet Count 156 10^3/uL (150-450); Red Blood Count 5.73 10^6/uL (4.70-6.10); Red Cell Distribution Width 14.6 % (11.0-15.0); Reticulocyte Pct Auto 1.73 % (0.60-3.10); White Blood Count 4.8 10^3/uL (4.0-11.0)
[2023-11-14 09:46] LABS: Alanine Aminotransferase 44 U/L (16-63); Albumin Globulin Ratio 1.1; Albumin Level 3.8 g/dL (3.4-5.0); Alkaline Phosphatase 73 U/L (46-116); Anion Gap 12.5; Aspartate Amino Transferase 23 U/L (15-37); BUN Creatinine Ratio 13.1; Bilirubin Total 1.4 mg/dL (0.2-1.0); Calcium 9.6 mg/dL (8.5-10.1); Carbon Dioxide 26.3 mmol/L (21.0-32.0); Chloride 103 mmol/L (98-107); Estimated GFR (African America >60 (>=60); Estimated GFR (Non-African Ame >60 (>=60); Globulin 3.5 g/dL; Glucose 121 mg/dL (74-106); Lactate Dehydrogenase 170 U/L (85-227); Potassium 3.8 mmol/L (3.5-5.1); Sodium 138 mmol/L (136-145); Total Protein 7.3 g/dL (6.4-8.2)
[2023-11-14 10:05] LABS: Percent Iron Saturation 18.6 %
== END 2023-12-14 23:59 | disposition home or self-care (01) ==
LOC: HEMC 07:26
PROVIDERS: PCP Family Medicine; Visit Provider Internal Medicine Hematology & Oncology
DX: I81 Portal vein thrombosis (principal); D68.9 Coagulation defect, unspecified
CPT/HCPCS: 36415; 80053; 82728; 83540; 83550; 83615; 85025; 85045; G0463

== ENCOUNTER 2024-01-06 09:23 | Outpatient (OUT) | payer OTHER, SELFPAY ==
--- OUTSIDE RECORDS SUMMARY | 2024-01-06 09:26 | XMS_ITS | CCD ---
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 and/or kV according to patient size was utilized. Automated exposure control, iterative reconstruction, and/or weight based adjustment of the mA/kV was utilized to reduce the radiation dose to as low as reasonably achievable. Radiation dose: Lumbar spine: Total exam DLP 4342.10 mGy-cm; COMPARISON: None. HISTORY: ORDERING SYSTEM PROVIDED HISTORY: Trauma TECHNOLOGIST PROVIDED HISTORY: Additional Contrast?->None Reason for exam:->Trauma Decision Support Exception - unselect if not a suspected or confirmed emergency medical condition->Emergenc y Medical Condition (MA) What reading provider will be dictating this exam?->CRC; ORDERING SYSTEM PROVIDED HISTORY: TRAUMA, Trauma TECHNOLOGIST PROVIDED HISTORY: Reason for exam:->Trauma Decision Support Exception - unselect if not a suspected or confirmed emergency medical condition->Emergenc y Medical Condition (MA) What reading provider will be dictating this exam?->CRC FINDINGS: CT OF THE ABDOMEN AND PELVIS Lower Chest: Mild atelectasis is seen in both bases. Organs: The spleen is slightly enlarged with a splenic volume of 620 is cc. No evidence of splenic injury is seen. The gallbladder, pancreas and adrenal glands are unremarkable. The liver is decreased in attenuation and heterogeneous which may reflect areas of sparing. The kidneys show no evidence of hydronephrosis. GI/Bowel: No dilated loops of bowel, significant fluid or free air is seen. Mild diverticulosis coli is seen with no inflammatory changes. There is no evidence for appendicitis. Scattered atherosclerotic calcifications are seen without any evidence aneurysm. Pelvis: The bladder is unremarkable. The prostate gland is not enlarged. Peritoneum/Retroper itoneum: No retroperitoneal adenopathy, hemorrhage or fluid seen. Bones/Soft Tissues: An umbilical hernia is seen that contains fat. There also may be some vascular structures within it. CT OF THE LUMBAR SPINE: ALIGNMENT: Slight retrolisthesis L4 on L5 is seen and slight anterolisthesis L5 on S1 is seen. DEGENERATIVE CHANGES: Mild intervertebral disc space narrowing is seen at T12-L1. Anterior osteophytes are seen at multiple levels in the largest are seen at L 1 and L2.. A Schmorl's node is seen in the superior endplate of L1. No significant stenosis is seen at any level. At L4-5 and L 5 S1 there is spondylolysis on the right with pars inter articularis defect seen. No acute fracture is visualized.. SOFT TISSUES: No prevertebral soft tissue mass, hematoma or fluid collection is seen. Mild atherosclerotic calcifications are seen in the abdominal aorta. IMPRESSION: CT abdomen pelvis 1. No free air free fluid seen. 2. Mild splenomegaly is noted. Hepatic steatosis. 3. The solid organs are intact. CT lumbar spine: Mild degenerative changes are seen without evidence for acute fracture or dislocation Interpreted by: Alfonzo Coelho DO Signed by: Alfonzo Coelho DO 07/25/[address] [facility] CT THORACIC SPINE WO CONTRAS Ton 07-25-2023 CT THORACIC SPINE WO CONTRAST EXAMINATION: CT OF THE THORACIC SPINE WITHOUT CONTRAST 07/25/2023 8:25 am: TECHNIQUE: CT of the thoracic spine was performed without the administration of intravenous contrast. Multiplanar reformatted images are provided for review. Automated exposure control, iterative reconstruction, and/or weight based adjustment of the mA/kV was utilized to reduce the radiation dose to as low as reasonably achievable. COMPARISON: None. HISTORY: ORDERING SYSTEM PROVIDED HISTORY: Trauma TECHNOLOGIST PROVIDED HISTORY: Reason for exam:->Trauma What reading provider will be dictating this exam?->CRC FINDINGS: BONES/ALIGNMENT: There is normal alignment of the spine. The vertebral body heights are maintained. No osseous destructive lesion is seen. DEGENERATIVE CHANGES: No gross spinal canal stenosis or bony neural foraminal narrowing of the thoracic spine. SOFT TISSUES: No paraspinal mass is seen. IMPRESSION: Unremarkable CT of the thoracic spine. Interpreted by: Magdiel Quach MD Signed by: Magdiel Quach MD 07/25/[address] [facility] Comprehensive Metabolic Pane josé 07-25-2023 Albumin [Mass/Vol] 4.1 g/dL Normal 3.5-4.6 [facility] Comment on above: Performed By: #### C MP #### [facility] [address] [place] [address] ALP [Catalytic activity/Vol] 76 U/L Normal 35-104 [facility] Comment on above: Performed By: #### C MP #### [facility] [address] [place] [address] ALT [Catalytic activity/Vol] 30 U/L Normal 0-41 [facility] Comment on above: Performed By: #### C MP #### [facility] [address] [place] [address] Anion gap [Moles/Vol] 8 mmol/L Low 9-15 [facility] Comment on above: Performed By: #### C MP #### [facility] [address] [place] [address] AST [Catalytic activity/Vol] 22 U/L Normal 0-40 [facility] Comment on above: Performed By: #### C MP #### [facility] [address] [place] [address] Bilirubin [Mass/Vol] 0.9 mg/dL Critically high 0.2-0.7 [facility] Comment on above: Performed By: #### C MP #### [facility] [address] [place] [address] Calcium [Mass/Vol] 9.6 mg/dL Normal 8.5-9.9 [facility] Comment on above: Performed By: #### C MP #### [facility] [address] [place] [address] Chloride [Moles/Vol] 108 mmol/L Critically high 95-107 [facility] Comment on above: Performed By: #### C MP #### [facility] [address] [place] [address] CO2 [Moles/Vol] 26 mmol/L Normal 20-31 [facility] Comment on above: Performed By: #### C MP #### [facility] [address] [place] [address] Creatinine [Mass/Vol] 0.76 mg/dL Normal 0.70-1.20 [facility] Comment on above: Performed By: #### C MP #### [facility] [address] [place] [address] GFR >90.0 Normal >60 [facility] Comment on above: Result Comment: Pedi atric calculator link https://www.kidney.org/professionals/kdoqi/gfr_calculatorped Effective Nov 15, 2021 These results are not intended for use in patients <18 years of age. eGFR results are calculated without a race factor using the 2020 CKD-EPI equation. Careful clinical correlation is recommended, particularly when comparing to results calculated using previous equations. The CKD-EPI equation is less accurate in patients with extremes of muscle mass, extra-renal metabolism of creatinine, excessive creatinine ingestion, or following therapy that affects renal tubular secretion. Performed By: #### C MP #### [facility] [address] [place] [address] Globulin (S) [Mass/Vol] 2.7 g/dL Normal 2.3-3.5 [facility] Comment on above: Performed By: #### C MP #### [facility] [address] [place] [address] Glucose [Mass/Vol] 127 mg/dL Critically high 70-99 [facility] Comment on above: Performed By: #### C MP #### [facility] [address] [place] [address] Potassium [Moles/Vol] 3.8 mmol/L Normal 3.4-4.9 [facility] Comment on above: Performed By: #### C MP #### [facility] [address] [place] [address] Protein [Mass/Vol] 6.8 g/dL Normal 6.3-8.0 [facility] Comment on above: Performed By: #### C MP #### [facility] [address] [place] [address] Sodium [Moles/Vol] 142 mmol/L Normal 135-144 [facility] Comment on above: Performed By: #### C MP #### [facility] [address] [place] [address] Urea nitrogen [Mass/Vol] 14 mg/dL Normal 6-20 [facility] Comment on above: Performed By: #### C MP #### [facility] [address] [place] [address] Creatine Kinaseon 07-25-2023 CK [Catalytic activity/Vol] 196 U/L Critically high 0-190 [facility] Comment on above: Performed By: #### C PK #### [facility] [address] [place] [address] Lactic Acidon 07-25-2023 Lactate [Moles/Vol] 1.2 mmol/L Normal 0.5-2.2 [facility] Comment on above: Performed By: #### L ACID #### [facility] [address] [place] [address] Magnesiumon 07-25-2023 Magnesium [Mass/Vol] 2.0 mg/dL Normal 1.7-2.4 [facility] Comment on above: Performed By: #### M G #### [facility] [address] [place] [address] POCT Venouson 07-25-2023 Creatinine [Mass/Vol] 0.8 mg/dL Normal 0.8-1.3 [facility] Comment on above: Performed By: #### P ALISON #### [facility] [address] [place] [address] GFR >90 Normal >60 [facility] Comment on above: Result Comment: Tahiri atric calculator link https://www.kidney.org/professionals/kdoqi/gfr_calculatorped Effective Nov 15, 2021 These results are not intended for use in patients <18 years of age. eGFR results are calculated without a race factor using the 2020 CKD-EPI equation. Careful clinical correlation is recommended, particularly when comparing to results calculated using previous equations. The CKD-EPI equation is less accurate in patients with extremes of muscle mass, extra-renal metabolism of creatinine, excessive creatinine ingestion, or following therapy that affects renal tubular secretion. Performed By: #### P ALISON #### [facility] [address] [place] [address] POC Performed on SEE BELOW Normal [facility] Comment on above: Result Comment: Perf ormed on POC Performed By: #### P ALISON #### [facility] [address] [place] [address] POC Sample Type ALISON Normal [facility] Comment on above: Performed By: #### P ALISON #### [facility] [address] [place] [address] Partial Thromboplastin Timeo n 07-25-2023 aPTT Coag (Bld) [Time] 25.5 s Normal 24.4-36.8 [facility] Comment on above: Result Comment: Effe ctive 12/18/2019: Heparin Therapeutic Range: 64.0 ? 98.0 seconds. Performed By: #### P TT #### [facility] [address] [place] [address] Prothrombin Timeon INR Coag (PPP) [Relative time] 1.1 {INR} Normal [facility] Comment on above: Performed By: #### P TT #### [facility] [address] [place] [address] PT Coag (PPP) [Time] 14.2 s Normal 12.3-14.9 [facility] Comment on above: Performed By: #### P TT #### [facility] [address] [place] [address] UR Drugs of Abuse Panelon Drug Screen Comment see below Normal [facility] Comment on above: Result Comment: This method is a screening test to detect only these drug classes as part of a medical workup. Confirmatory testing by another method should be ordered if clinically indicated. Performed By: #### U DRGS #### [facility] [address] [place] [address] UR Amphetamines Screen Negative Normal Negative < [facility] Comment on above: Performed By: #### U DRGS #### [facility] [address] [place] [address] UR Barbiturates Screen Negative Normal Negative < [facility] Comment on above: Performed By: #### U DRGS #### [facility] [address] [place] [address] UR Benzo Screen Negative Normal Negative < [facility] Comment on above: Performed By: #### U DRGS #### [facility] [address] [place] [address] UR Cannabinoids Screen Negative Normal Negative < [facility] Comment on above: Performed By: #### U DRGS #### [facility] [address] [place] [address] UR Cocaine Screen Negative Normal Negative < [facility] Comment on above: Performed By: #### U DRGS #### [facility] [address] [place] [address] UR Fentanyl Screen Negative Normal Negative < [facility] Comment on above: Performed By: #### U DRGS #### [facility] [address] [place] [address] UR Methadone Screen Negative Normal Negative < [facility] Comment on above: Performed By: #### U DRGS #### [facility] [address] [place] [address] UR Opiates Screen Negative Normal Negative < [facility] Comment on above: Performed By: #### U DRGS #### [facility] [address] [place] [address] UR Oxycodone Screen Negative Normal Negative < [facility] Comment on above: Performed By: #### U DRGS #### [facility] [address] [place] [address] UR PCP Screen Negative Normal Negative < [facility] [place] Comment on above: Performed By: #### U DRGS #### [facility] [address] [place] [address] UR Propoxyphene Screen Negative Normal Negative < [facility] Comment on above: Performed By: #### U DRGS #### [facility] [address] [place] [address] Urinalysis, reflex to cultur can 07-25-2023 Bilirubin Ql (U) Negative Normal Negative [facility] Comment on above: Performed By: #### U AR #### [facility] [address] [place] [address] Clarity (U) Clear Normal Clear [facility] Comment on above: Performed By: #### U AR #### [facility] [address] [place] [address] Color (U) Yellow Normal Straw/Curry [facility] Comment on above: Performed By: #### U AR #### [facility] [address] [place] [address] Glucose Ql (U) Negative Normal Negative [facility] Comment on above: Performed By: #### U AR #### [facility] [address] [place] [address] Hemoglobin Ql (U) Negative Normal Negative [facility] Comment on above: Performed By: #### U AR #### [facility] [address] [place] [address] Ketones Ql (U) Negative Normal Negative [facility] Comment on above: Performed By: #### U AR #### [facility] [address] [place] [address] Leukocyte esterase Test strip Ql (U) Negative Normal Negative [facility] Comment on above: Performed By: #### U AR #### [facility] [address] [place] [address] Nitrite Ql (U) Negative Normal Negative [facility] Comment on above: Performed By: #### U AR #### [facility] [address] [place] [address] pH (U) 5.5 [pH] Normal 5.0-9.0 [facility] Comment on above: Performed By: #### U AR #### [facility] [address] [place] [address] Protein Ql (U) Negative Normal Negative [facility] Comment on above: Performed By: #### U AR #### [facility] [address] [place] [address] Specific gravity (U) [Rel density] 1.025 Normal 1.005-1.03 [facility] Comment on above: Performed By: #### U AR #### [facility] [address] [place] [address] Urine Reflexed to Culture Not Indicated Normal [facility] Comment on above: Performed By: #### U AR #### [facility] [address] [place] [address] Urobilinogen Qn (U) 1.0 {Lisa'U}/dL Normal < 2.0 [facility] Comment on above: Performed By: #### U AR #### [facility] [address] [place] [address] XR ANKLE LEFT (MIN 3 VIEWS)o n 07-25-2023 XR ANKLE LEFT (MIN 3 VIEWS) EXAMINATION: THREE XRAY VIEWS OF THE LEFT ANKLE 07/25/2023 8:42 am COMPARISON: None. HISTORY: ORDERING SYSTEM PROVIDED HISTORY: ALF, Left foot/ankle pain TECHNOLOGIST PROVIDED HISTORY: Reason for exam:->ALF, Left foot/ankle pain What reading provider will be dictating this exam?->CRC FINDINGS: No fracture is identified radiographically. Alignment is overall normal. No acute process is seen. IMPRESSION: No acute fracture visualized radiographically. Interpreted by: Talha Alves MD Signed by: Talha Alves MD 07/25/[address] [facility] XR FOOT LEFT (MIN 3 VIEWS)on 07-25-2023 XR FOOT LEFT (MIN 3 VIEWS) EXAMINATION: THREE XRAY VIEWS OF THE LEFT FOOT 07/25/2023 8:42 am COMPARISON: None. HISTORY: ORDERING SYSTEM PROVIDED HISTORY: ALF, left lateral foot pain TECHNOLOGIST PROVIDED HISTORY: Reason for exam:->ALF, left lateral foot pain What reading provider will be dictating this exam?->CRC FINDINGS: No fracture is identified radiographically. Alignment is overall normal. No acute process is seen. IMPRESSION: No acute fracture visualized radiographically. Interpreted by: Talha Alves MD Signed by: Talha Alves MD 07/25/[address] [facility] XR HAND RIGHT (MIN 3 VIEWS)o n 07-25-2023 XR HAND RIGHT (MIN 3 VIEWS) EXAMINATION: THREE XRAY VIEWS OF THE RIGHT HAND 07/25/2023 8:42 am COMPARISON: None. HISTORY: ORDERING SYSTEM PROVIDED HISTORY: ALF, right thumb pain TECHNOLOGIST PROVIDED HISTORY: Reason for exam:->ALF, right thumb pain What reading provider will be dictating this exam?->CRC FINDINGS: No fracture is identified radiographically. Alignment is overall normal. No acute process is seen. IMPRESSION: No acute fracture visualized radiographically. Interpreted by: Talha Alves MD Signed by: Talha Alves MD 07/25/[address] [facility] XR WRIST RIGHT (MIN 3 VIEWS) on 07-25-2023 XR WRIST RIGHT (MIN 3 VIEWS) EXAMINATION: XRAY VIEWS OF THE RIGHT WRIST 07/25/2023 8:42 am COMPARISON: None. HISTORY: ORDERING SYSTEM PROVIDED HISTORY: ALF, Right wrist pain TECHNOLOGIST PROVIDED HISTORY: Reason for exam:->ALF, Right wrist pain What reading provider will be dictating this exam?->CRC FINDINGS: No fracture is identified radiographically. Alignment is overall normal. No acute process is seen. IMPRESSION: No acute fracture visualized radiographically. Interpreted by: Talha Alves MD Signed by: Talha Alves MD 07/25/[address] [facility] Activated partial thrombopla stin time (aPTT) in platelet poor plasma by coagulation aOrdered By: Alysha العلي on 05-17-2023 aPTT Coag (PPP) [Time] 28.0 s 25.1-36.5 [facility] Comment on above: A hematocrit value g reater than 55% may lead to inaccurate results in coagulation testing. Patients having hematocrit values >55% require a special collection tube for coagulation studies. Please contact the laboratory at [phone] for redraw instructions. Partial Thromboplastin Timeo n 05-17-2023 aPTT Coag (Bld) [Time] 28.0 s Normal 25.1-36.5 The Count Includes [facility] Comment on above: Result Comment: A he matocrit value greater than 55% may lead to inaccurate results in coagulation testing. Patients having hematocrit values >55% require a special collection tube for coagulation studies. Please contact the laboratory at [phone] for redraw instructions. PERFORMED BY: [address] [address] PATHOLOGIST [employer] REC[employer]CILI[employer] SPECIALIST CHRISTA REHMAN M.D. Performed By: #### P TT #### [place] [id number] [facility] COVID/FLU RT-PCRon SARS-CoV-2 (COVID-19) RNA ARAM+probe Ql (Unsp spec) Negative [facility] Other COVID/FLU RT-PCR Positive [employer] Other COVID/FLU RT-PCR Negative [employer] Other Ambulatory Visit Summaryon 0 07-09-2021 Ambulatory Visit Summary CELINA MAJANO :1980 Visit Date:07/09/2021 Ambulatory Visit Instructions Your Diagnosis Inflamed seborrheic keratosis Your Care Team Attending Physician - FILOMENA ALTMAN, Denise Gann Primary Care Physician - Zohra ALTMAN, Alysha This Is Your Medications List Contact prescribing physician if questions or concerns diclofenac (Diclofenac 75mg Tab-DR) omeprazole (omeprazole 40 mg Cap-DR) tizanidine (tiZANidine 4 mg Tab) triamcinolone topical (triamcinolone Top 0.5% Crm) Procedures Performed Excisional biopsy (06/16/2021), Closed fracture of left orbital floor, EGD - Esophagogastroduode noscopy. Medications What How Much When Instructions Unchanged diclofenac (Diclofenac 75mg Tab-DR) 1 Tablets By Mouth 2 times a day Contact prescribing physician if questions or concerns Unchanged omeprazole (omeprazole 40 mg Cap-DR) 1 Capsules By Mouth Every day Contact prescribing physician if questions or concerns Unchanged tizanidine (tiZANidine 4 mg Tab) 2 Tablets By Mouth At bedtime Contact prescribing physician if questions or concerns Unchanged triamcinolone topical (triamcinolone Top 0.5% Crm) 1 Application Topical 2 times a day Contact prescribing physician if questions or concerns Allergies No Known Allergies No Known Medication Allergies Problems Ongoing - Any problem that you are currently receiving treatment for. BMI 39.0-39.9,adult Dyshidrotic eczema GERD (gastroesophageal reflux disease) Inflamed seborrheic keratosis Neoplasm of uncertain behavior of skin Obesity Psoriasis Varicose vein of leg Normal [facility] General Surgery Office/Clini c Noteon 07-09-2021 General Surgery Office/Clinic Note Chief Complaint post operative follow up HPI Staff 23 day post operative follow up post excisional biopsy LLE. Reports some incisional tenderness. Denies bleeding or drainage. Sutures intact. History of Present Illness 3 1/2 weeks s/p excision inflamed seborrheic keratosis left lower extremity; doing well, mild soreness, no drainage; used antibiotic ointment on area one day. Review of Systems ROS - Provider Constitutional: no fever, no sweats, no weight loss. Eyes: no glasses, no blurred vision, no visual loss. ENMT: no dentures, no hoarseness, no swallowing difficulties, no hearing loss, no ear infection(s), no nose bleeds. Cardiovascular: normal blood pressure, no chest pain, regular heartbeat, no heart murmur. Respiratory: no shortness of breath, no cough, no asthma, no wheezing. Gastrointestinal: no nausea, no vomiting, no diarrhea, no constipation, no blood in stool, no change in bowel habits, no abdominal pain, no hepatitis. Genitourinary: no kidney stones, no urine infection, no dysuria. Musculoskeletal: no pain, no weakness. Skin: no changing moles, no rash, no skin lumps. Neurologic: no seizures, no epilepsy, no headache. Psychiatric: no emotional or psychiatric problem. Heme/Lymph: no bleeding problems, no anemia, no blood clots, no transfusions. Allergy/Immunologic : no swollen lymph nodes/glands, no IV drug abuse. Other: Additional ROS info: Except as noted in the above Review of Systems and in the History of Present Illness, all other systems have been reviewed and are negative or noncontributory. Physical Exam skin: incision healing well, minimal erythema around sutures, no drainage. Assessment/Plan 1. Inflamed seborrheic keratosis (L82.0: Inflamed seborrheic keratosis) doing well, sutures removed, call with problem/questions. Follow-up No qualifying data available Problem List/Past Medical History Ongoing BMI 39.0-39.9,adult Dyshidrotic eczema GERD (gastroesophageal reflux disease) Inflamed seborrheic keratosis Neoplasm of uncertain behavior of skin Obesity Psoriasis Varicose vein of leg Historical No qualifying data Procedure/Surgical History Excisional biopsy (06/16/2021), Closed fracture of left orbital floor, EGD - Esophagogastroduode noscopy. Medications Diclofenac 75mg Tab-DR, 1 tab(s), Oral, BID omeprazole 40 mg Cap-DR, 40 mg= 1 cap(s), Oral, Daily tiZANidine 4 mg Tab, 8 mg= 2 tab(s), Oral, Bedtime triamcinolone Top 0.5% Crm, 1 valorie, Topical, BID Allergies No Known Allergies No Known Medication Allergies Social History Alcohol - Denies Alcohol Use, 05/19/2021 Substance Abuse - Denies Substance Abuse, 05/19/2021 Tobacco Former smoker, quit more than 30 days ago Tobacco Use:. Never Smokeless Tobacco Use:. Cigarettes, 1 per day. Started age 15.0 Years. Stopped age 26 Years., 05/19/2021 Family History Cancer: Mother. Diabetes mellitus type 2: Sister. Hypertension: Mother. Mitral valve disorder: Mother. Primary malignant neoplasm of skin: Father. Immunizations Vaccine Date Status Comments influenza virus vaccine, inactivated - Not Given Patient Refuses [facility] Comment on above: Result Comment: Elec tronically Signed By: FILOMENA ALTMAN, Denise Gann\.br\Date and Time Signed: 07/09/21 08:40 EDT Provider Letter FTon 07-09 Provider Letter [facility] [place] 09, [place] CELINA MAJANO [address] [place] [address] CELINA MAJANO 1980 To Whom It May Concern, Please excuse above patient from work on 06/29/21 and 07/09/21. Sincerely, Dr. Denise Butt MD General Surgery [facility] Pathology Noteon 06-30-2021 Pathology Note [id number] 5A#1.00CD:127 Normal [facility] Ambulatory Visit Summaryon 0 06-29-2021 Ambulatory Visit Summary CELINA MAJANO :1980 Visit Date:06/29/2021 Ambulatory Visit Instructions Your Diagnosis Neoplasm of uncertain behavior of skin Your Care Team Attending Physician - Denise BUTT MD Primary Care Physician - Alysha العلي MD This Is Your Medications List Contact prescribing physician if questions or concerns diclofenac (Diclofenac 75mg Tab-DR) omeprazole (omeprazole 40 mg Cap-DR) tizanidine (tiZANidine 4 mg Tab) triamcinolone topical (triamcinolone Top 0.5% Crm) Procedures Performed Excisional biopsy (06/16/2021), Closed fracture of left orbital floor, EGD - Esophagogastroduode noscopy. What to do next Scheduled Follow-Up Appointments Monday. 2021 8:00 AM EDT With: FILOMENA ALTMAN, Denise Gann Where: [facility] General Surgery [place] Normal [facility] General Surgery Office/Clini c Noteon 06-29-2021 General Surgery Office/Clinic Note Chief Complaint post operative follow up HPI Staff 13 day post operative follow up post excisional biopsy left anterior lower extremity. Minimal tenderness when pressure applied. Denies bleeding or drainage from incision. Sutures intact. History of Present Illness 13 days s/o excisional biopsy of left anterior lower extremity skin lesion; mild soreness, no drainage or significant swelling; pathology still pending. Physical Exam skin: incision without edema or drainage; minimal erythema around sutures. Assessment/Plan 1. Neoplasm of uncertain behavior of skin (D48.5: Neoplasm of uncertain behavior of skin) some sutures removed; keep clean and dry; follow up in 10-14 days for removal of remaining sutures; will call patient with pathology results. Follow-up No qualifying data available Problem List/Past Medical History Ongoing BMI 39.0-39.9,adult Dyshidrotic eczema GERD (gastroesophageal reflux disease) Neoplasm of uncertain behavior of skin Obesity Psoriasis Varicose vein of leg Historical No qualifying data Procedure/Surgical History Excisional biopsy (06/16/2021), Closed fracture of left orbital floor, EGD - Esophagogastroduode noscopy. Medications Diclofenac 75mg Tab-DR, 1 tab(s), Oral, BID omeprazole 40 mg Cap-DR, 40 mg= 1 cap(s), Oral, Daily tiZANidine 4 mg Tab, 8 mg= 2 tab(s), Oral, Bedtime triamcinolone Top 0.5% Crm, 1 valorie, Topical, BID Allergies No Known Allergies No Known Medication Allergies Social History Alcohol - Denies Alcohol Use, 05/19/2021 Substance Abuse - Denies Substance Abuse, 05/19/2021 Tobacco Former smoker, quit more than 30 days ago Tobacco Use:. Never Smokeless Tobacco Use:. Cigarettes, 1 per day. Started age 15.0 Years. Stopped age 26 Years., 05/19/2021 Family History Cancer: Mother. Diabetes mellitus type 2: Sister. Hypertension: Mother. Mitral valve disorder: Mother. Primary malignant neoplasm of skin: Father. Immunizations Vaccine Date Status Comments influenza virus vaccine, inactivated - Not Given Patient Refuses [facility] Comment on above: Result Comment: Elec tronically Signed By: FILOMENA ALTMAN, Denise Gann\Hemanthbr\Date and Time Signed: 06/29/21 13:54 EDT Operative Reporton Operative Report [id number] 49#1.00CD:127 [facility] Provider Letter FTon 06-17 Provider Letter [facility] June 17, 2021 CELINA MAJANO [address] [place] [address] CELINA MAJANO 1980 To Whom It May Concern, Please excuse above patient from work 06/16/21 and 06/17/21 due to minor surgical procedure. Sincerely, Dr. Denise Butt MD General Surgery [facility] Consent for Procedure/Surger yon 05-20-2021 Consent for Procedure/Surgery [id number] 4#1.00CD:127 [facility] Ambulatory Visit Summaryon 0 05-19-2021 Ambulatory Visit Summary CELINA MAJANO :1980 Visit Date:05/19/2021 Ambulatory Visit Instructions Your Care Team Attending Physician - FILOMENA ALTMAN, Denise Gann Primary Care Physician - Alysha العلي MD Referring Physician - Alysha العلي MD This Is Your Medications List Contact prescribing physician if questions or concerns diclofenac (Diclofenac 75mg Tab-DR) omeprazole (omeprazole 40 mg Cap-DR) tizanidine (tiZANidine 4 mg Tab) triamcinolone topical (triamcinolone Top 0.5% Crm) Procedures Performed Closed fracture of left orbital floor, EGD - Esophagogastroduode noscopy. Discharge Vitals Heart Rate (Peripheral) 76 Respiratory Rate 16 Blood Pressure 126/90 Height 188.0 cm Height 187.96 cm Weight 140.8 kg Weight 140.8 kg BMI 39.85 Medications What How Much When Instructions Unchanged diclofenac (Diclofenac 75mg Tab-DR) 1 Tablets By Mouth 2 times a day Contact prescribing physician if questions or concerns Unchanged omeprazole (omeprazole 40 mg Cap-DR) 1 Capsules By Mouth Every day Contact prescribing physician if questions or concerns Unchanged tizanidine (tiZANidine 4 mg Tab) 2 Tablets By Mouth At bedtime Contact prescribing physician if questions or concerns Unchanged triamcinolone topical (triamcinolone Top 0.5% Crm) 1 Application Topical 2 times a day Contact prescribing physician if questions or concerns Medications and Immunizations Administered Not Given influenza virus vaccine, inactivated, Patient Refuses Allergies No Known Allergies No Known Medication Allergies Problems Ongoing - Any problem that you are currently receiving treatment for. BMI 39.0-39.9,adult Dyshidrotic eczema GERD (gastroesophageal reflux disease) Obesity Psoriasis Varicose vein of leg [facility] Provider Letteron 05-19-2021 Provider Letter May 19, 2021 CELINA MAJANO [address] [place] [address] CELINA MAJANO 1980 To Whom It May Concern, Please excuse above patient from work. Date of appointment From: 05/19/21 May Return to Work On: next scheduled day Restrictions: none Comments: patient was in our office for a consult today Sincerely, Dr Filomena Veliz [facility] US SINGLE QUAD RT UPPERon US SINGLE QUAD RT UPPER EXAM: US SINGLE QUAD RT UPPER HISTORY: . Pain in thoracic spine . COMPARISON: None. TECHNIQUE: Grayscale and color imaging was performed FINDINGS: Exam was limited due to patient's body habitus and overlying bowel gas. The body of the pancreas appears normal. The head and tail was obscured due to overlying bowel gas. Scanning of the liver demonstrates diffuse increased echogenicity of liver. Liver is prominent in size measuring 18 cm. Color-flow is noted in the portal and hepatic veins. Common bile duct is normal measuring 4.6 mm. Scanning of the gallbladder demonstrates no stones or sludge within the gallbladder. No gallbladder wall thickening is noted. Right kidney measures 11.7 x 6.8 x 6.2 cm. Color-flow is noted. No solid renal cortical masses or hydronephrosis is noted. No fluid was noted in the right upper quadrant. IMPRESSION: 1. Liver was prominent in size measuring 18 cm. There is mild increased echogenicity of liver consistent with fatty infiltration of the liver. 2. The body of the pancreas appears normal. The head and tail was obscured due to overlying bowel gas. 3. The remainder the right upper quadrant was unremarkable. Electronically authenticated by: SUJATHA COTA Date: 2021-05-19 10:34 Normal [facility] VC VENOUS REFLUX TAMIKA LMTon 0 05-19-2021 VC VENOUS REFLUX TAMIKA LMT Patient: CELINA MAJANO Exam Date: 05/19/2021 : 1980 Gender:M Ordering : DR ALYSHA العلي . Admission #: [id number] Family : Order #: [id number] CLICK HERE TO VIEW EXAM RADIOLOGY REPORT PROCEDURE: VEIN CENTER ULTRASOUND VENOUS REFLUX BILATERAL LIMTED COMPARISON: None. INDICATIONS: Pain co-occurrent and due to varicose veins of left leg I83.812 TECHNIQUE: Duplex imaging of the lower extremity to assess the deep and superficial venous system for the presence of deep or superficial venous incompetence and to document the location and severity of disease. The study includes evaluation of the great saphenous vein (GSV), anterior accessory saphenous vein (AASV) and small saphenous vein (SSV). Patient scanned in reverse Trendelenburg and standing. FINDINGS: RIGHT LOWER EXTREMITY: Saphenofemoral Junction Reflux: Yes 9.5mm 1.4 sec GSV: Diam (mm) Reflux/ Time (sec) Proximal Thigh 6.2 No Mid Thigh 5.2 No Distal Thigh 4.0 No Prox Calf 2.3 Yes 4.3 Mid Calf 2.3 Yes 3.3 Saphenopopliteal Junction Reflux: 3.4mm No SSV: Proximal Calf 3.3 No Mid Calf 2.8 Yes 0.7 AASV: Proximal Thigh 3.3 No Thrombi: None. Compressibility: Normal. Flow: Normal. Preforator: Distal/medial lower leg perf measures 2.5 mm. Mid/medial lower leg perf measures 2.4 mm. Tech Note: Thigh extention of the SSV. Reflux noted in the SFJ and GSV in the calf. Varicose vein proximal lower leg medial measures 3.1 mm. LEFT LOWER EXTREMITY: Saphenofemoral Junction Reflux: Yes 8.7 mm 1.4 sec GSV: Diam (mm) Reflux/Time (sec) Proximal Thigh 7.5 Yes 2.0 Mid Thigh 5.1 No Distal Thigh 5.0 No Prox Calf 2.5 No Mid Calf 2.1 Yes 1.3 Saphenopopliteal Junction Relux: 4.0 mm No SSV: Proximal Calf 3.3 No Mid Calf 2.5 Yes 3.2 AASV: Proximal Thigh 5.1 No Mid Thigh 3.2 Yes 0.5 Distal Thigh Thrombi: None. Compressibility: Normal. Flow: Normal. Set Making Machine Operator: Mid/medial lower leg perf measures 5.6 mm with 0.6s reflux. Tech Note: Thigh extention of the SSV. Reflux visualized in the SFJ, proximal and distal GSV, and mid SSV. Varicose vein mid/medial calf measures 3.0 mm with 4.0 seconds of reflux. CONCLUSION: 1. Mild to moderate reflux in the right great saphenous vein without dilatation 2. Minimal reflux in the right small saphenous vein 3. Mild reflux in the left great saphenous vein with mild dilatation 4. Moderate reflux distal left small saphenous vein without dilatation 5. Incompetent dilated left lower leg perforating vein 6. Small incompetent bilateral varicose veins Dictated by: Sujatha Patel MD on 05/19/2021 at 09:24 Approved by: Sujatha Patel MD on 05/19/2021 at 09:26 Normal [facility] Physician Referralon 05-12- 022 Physician Referral [id number] C#1.00CD:127 Normal [facility] Covid-19 PCR (CVDTB)on 01-15 SARS-CoV-2 (COVID-19) RNA ARAM+probe Ql (Unsp spec) Detected Critically abnormal NOT DETECTED [facility] Comment on above: Result Comment: This test is not yet approved or cleared by the [place] FDA. When there are no FDA-approved or cleared tests available, and other criteria are met, FDA can make tests available under an emergency access mechanism called an Emergency Use Authorization (EUA). The EUA for this test is supported by the [place] of Health and Human Service's (HHS's) declaration that circumstances exist to justify the emergency use of in vitro diagnostics for the detection and/or diagnosis of the virus that causes COVID-19. This EUA will remain in effect (meaning this test can be used) for the duration of the COVID-19 declaration justifying emergency of IVDs, unless it is terminated or revoked by FDA (after which the test may no longer be used). Performed By: #### C VDTB #### [facility] [address] [place] [address] Dr. Alex Craft Covid-19 PCR (CVDTB)on 01-14 SARS-CoV-2 (COVID-19) RNA ARAM+probe Ql (Unsp spec) Not detected Normal NOT DETECTED [facility] Comment on above: Result Comment: This test is not yet approved or cleared by the [place] FDA. When there are no FDA-approved or cleared tests available, and other criteria are met, FDA can make tests available under an emergency access mechanism called an Emergency Use Authorization (EUA). The EUA for this test is supported by the [place] of Health and Human Service's (HHS's) declaration that circumstances exist to justify the emergency use of in vitro diagnostics for the detection and/or diagnosis of the virus that causes COVID-19. This EUA will remain in effect (meaning this test can be used) for the duration of the COVID-19 declaration justifying emergency of IVDs, unless it is terminated or revoked by FDA (after which the test may no longer be used). When diagnostic testing is negative, the possibility of a false negative should be considered in the context of a patient's recent exposures and the presence of clinical signs and symptoms consistent with SARS-CoV-2. Performed By: #### C VDTB #### [facility] [address] [place], [place] [address] Dr[address] Alex [address] [facility] Metabolic Pane josé 11-07-2020 Albumin [Mass/Vol] 4.5 g/dL Normal 3.5-4.6 [facility] Comment on above: Performed By: #### C MP #### [facility] [address] [place] [address] ALP [Catalytic activity/Vol] 61 U/L Normal 35-104 [facility] Comment on above: Performed By: #### C MP #### [facility] [address] [place] [address] ALT [Catalytic activity/Vol] 40 U/L Normal 0-41 [facility] Comment on above: Performed By: #### C MP #### [facility] [address] [place] [address] Anion gap [Moles/Vol] 8 mmol/L Low 9-15 [facility] Comment on above: Performed By: #### C MP #### [facility] [address] [place] [address] AST [Catalytic activity/Vol] 24 U/L Normal 0-40 [facility] Comment on above: Performed By: #### C MP #### [facility] [address] [place] [address] Bilirubin [Mass/Vol] 0.6 mg/dL Normal 0.2-0.7 [facility] Comment on above: Performed By: #### C MP #### [facility] [address] [place] [address] Calcium [Mass/Vol] 9.8 mg/dL Normal 8.5-9.9 [facility] Comment on above: Performed By: #### C MP #### [facility] [address] [place] [address] Chloride [Moles/Vol] 100 mmol/L Normal 95-107 [facility] Comment on above: Performed By: #### C MP #### [facility] [address] [place] [address] CO2 [Moles/Vol] 27 mmol/L Normal 20-31 [facility] Comment on above: Performed By: #### C MP #### [facility] [address] [place] [address] Creatinine [Mass/Vol] 0.83 mg/dL Normal 0.70-1.20 [facility] Comment on above: Performed By: #### C MP #### [facility] [address] [place] [address] GFR >60.0 Normal >60 [facility] Comment on above: Result Comment: >60 mL/min/1.73m2 EGFR, calc. for ages 18 and older using the MDRD formula (not corrected for weight), is valid for stable renal function. Performed By: #### C MP #### [facility] [address] [place] [address] GFR/1.73 sq M.predicted among blacks MDRD (S/P/Bld) [Vol rate/Area] mL/min/{1.73_m2} Normal >60 [facility] Comment on above: Result Comment: >60 mL/min/1.73m2 EGFR, calc. for ages 18 and older using the MDRD formula (not corrected for weight), is valid for stable renal function. Performed By: #### C MP #### [facility] [address] [place] [address] Globulin (S) [Mass/Vol] 2.4 g/dL Normal 2.3-3.5 [facility] Comment on above: Performed By: #### C MP #### [facility] [address] [place] [address] Glucose [Mass/Vol] 79 mg/dL Normal 70-99 [facility] Comment on above: Performed By: #### C MP #### [facility] [address] [place] [address] Potassium [Moles/Vol] 4.5 mmol/L Normal 3.4-4.9 [facility] Comment on above: Performed By: #### C MP #### [facility] [address] [place] [address] Protein [Mass/Vol] 6.9 g/dL Normal 6.3-8.0 [facility] Comment on above: Performed By: #### C MP #### [facility] [address] [place] [address] Sodium [Moles/Vol] 135 mmol/L Normal 135-144 [facility] Comment on above: Performed By: #### C MP #### [facility] [address] [place] [address] Urea nitrogen [Mass/Vol] 14 mg/dL Normal 6-20 [facility] Comment on above: Performed By: #### C MP #### [facility] [address] [place] [address] Lipid Panelon 11-07-2020 Cholesterol [Mass/Vol] 221 mg/dL Critically high 0-199 [facility] Comment on above: Result Comment: ATP III Cholesterol Classification is Borderline High. Performed By: #### L IPID #### [facility] [address] [place] [address] Cholesterol in HDL [Mass/Vol] 37 mg/dL Low 40-59 [facility] Comment on above: Result Comment: ATP III HDL Cholestrol Classification is low. Expected Values: Males: >55 = No Risk 35-55 = Moderate Risk <35 = High Risk Females: >65 = No Risk 45-65 = Moderate Risk <45 = High Risk NCEP Guidelines: Third Report June 2000 >59 = negative risk factor for CHD <40 = major risk factor for CHD Performed By: #### L IPID #### [facility] [address] [place] [address] Cholesterol in LDL [Mass/Vol] 165 mg/dL Critically high 0-129 [facility] Comment on above: Result Comment: ATP III LDL Classification is High. Performed By: #### L IPID #### [facility] [address] [place] [address] Triglyceride [Mass/Vol] 96 mg/dL Normal 0-150 [facility] Comment on above: Result Comment: ATP III Triglycerides Classification is Normal. Performed By: #### L IPID #### [facility] [address] [place] [address] Vital Signs Date Time Vital Sign Value Performing Clinician Facility 11-23-2023 08:43-0400 Body height 188 cm Dariana Rm MD Work Phone: [facility] 11-23-2023 08:43-0400 Body mass index (BMI) [Ratio] 37.88 kg/m2 Dariana Rm MD Work Phone: [facility] 11-23-2023 08:43-0400 Body temperature 97.2 [degF] Dariana Rm MD Work Phone: [facility] 11-23-2023 08:43-0400 Body weight 133.81 kg Dariana Rm MD Work Phone: [facility] 11-23-2023 08:43-0400 Diastolic blood pressure 90 mm[Hg] Dariana Rm MD Work Phone: [facility] 11-23-2023 08:43-0400 Heart rate 70 /min Dariana Rm MD Work Phone: [facility] 11-23-2023 08:43-0400 Respiratory rate 16 /min Dariana Rm MD Work Phone: [facility] 11-23-2023 08:43-0400 SaO2% (BldA) [Mass fraction] 97 % Dariana Rm MD Work Phone: [facility] 11-23-2023 08:43-0400 Systolic blood pressure 142 mm[Hg] Dariana Rm MD Work Phone: [facility] 10-20-2023 09:54-0400 Body height 187.96 cm [facility] 10-20-2023 09:54-0400 Body mass index (BMI) [Ratio] 36.5 kg/m2 [facility] 10-20-2023 09:54-0400 Body weight 129 kg [facility] 08-02-2023 13:58-0400 Body height 187.96 cm MD Alysha العلي Work Phone: [facility] 08-02-2023 13:58-0400 Body mass index (BMI) [Ratio] 36.6 kg/m2 MD Alysha العلي Work Phone: [facility] 08-02-2023 13:58-0400 Body weight 129.27 kg MD Alysha العلي Work Phone: [facility] 08-02-2023 13:38-0400 Body temperature 97.7 [degF] MD Alysha العلي Work Phone: [facility] 08-02-2023 13:38-0400 Diastolic blood pressure 90 mm[Hg] MD Alysha العلي Work Phone: [facility] 08-02-2023 13:38-0400 Heart rate 80 /min MD Alysha العلي Work Phone: [facility] 08-02-2023 13:38-0400 Respiratory rate 24 /min MD Alysha العلي Work Phone: [facility] 08-02-2023 13:38-0400 Systolic blood pressure 160 mm[Hg] MD Alysha العلي Work Phone: [facility] 01-15-2022 13:15-0500 Body height 184.78 cm Angelica Rossi Other [facility] Other 01-15-2022 13:15-0500 Body mass index (BMI) [Ratio] 38.08 kg/m2 Angelica Rossi Other [facility] 01-15-2022 13:15-0500 Body temperature 97.5 [degF] Angelica Rossi Other [facility] 01-15-2022 13:15-0500 Body weight 130.05 kg Angelica Rossi Other [facility] 01-15-2022 13:15-0500 Diastolic blood pressure 87 mm[Hg] Angelica Rossi Other [facility] Other 01-15-2022 13:15-0500 Respiratory rate 20 /min Angelica Rossi Other [facility] 01-15-2022 13:15-0500 SaO2% (BldA) [Mass fraction] 96 % Angelica Rossi Other [facility] 01-15-2022 13:15-0500 Systolic blood pressure 131 mm[Hg] Angelica Rossi Other [facility] 05-19-2021 15:33-0400 Blood Pressure Location Denise NILL [facility] [place] 05-19-2021 15:33-0400 Diastolic blood pressure 90 mm[Hg] Denise NILL [facility] [place] 05-19-2021 15:33-0400 Heart rate 76 /min Denise NILL [facility] [place] 05-19-2021 15:33-0400 Respiratory rate 16 /min Denise NILL [facility] [place] 05-19-2021 15:33-0400 Systolic blood pressure 126 mm[Hg] Denise NILL [facility] [place] Encounters Encounter Date Encounter Type Care Provider Facility Start: 12-08-2023 End: 12-08-2023 ambulatory [facility] Work Phone: Start: 12-08-2023 End: 12-08-2023 Patient encounter procedure Count Includes [facility] Work Phone: Start: 11-23-2023 End: 11-23-2023 Office outpatient visit 25 minutes Dariana Rm MD Work Phone: [facility] Comment on above: Portal vein thrombos is (Primary Dx) Start: 10-20-2023 End: 10-20-2023 ambulatory NON STAFF [facility] Work Phone: Start: 10-20-2023 End: 10-20-2023 Patient encounter procedure Count Includes [facility] Work Phone: Start: 09-08-2023 End: 09-08-2023 ambulatory NON STAFF [facility] Work Phone: Start: 09-08-2023 End: 09-08-2023 Patient encounter procedure Count Includes [facility] Work Phone: Start: 08-11-2023 End: 08-11-2023 ambulatory NON STAFF [facility] Work Phone: Start: 08-11-2023 End: 08-11-2023 Patient encounter procedure MD Alysha العلي Work Phone: Count Includes [facility] Work Phone: Start: 08-02-2023 End: 08-02-2023 Discharged Recurring [facility] Work Phone: Start: 08-02-2023 Registered Recurring MD Usman العلي Work Phone: [facility] Work Phone: Start: 08-02-2023 End: 08-02-2023 ambulatory Alysha العلي Facility:[facility] Start: 07-28-2023 End: 07-28-2023 ambulatory NON STAFF [facility] Work Phone: Start: 07-28-2023 End: 07-28-2023 Patient encounter procedure MD Alysha العلي Work Phone: Count Includes [facility] Work Phone: Start: 07-25-2023 End: 07-25-2023 Emergency department patient visit MARIELLA GUDINO-JAMA [facility] Start: 05-17-2023 End: 05-17-2023 ambulatory Alysha العلي [facility] Work Phone: Start: 05-17-2023 End: 05-17-2023 Departed Referred MD Alysha العلي Work Phone: [facility] [place] [facility] Start: 01-15-2022 End: 01-15-2022 ambulatory Angelica Rossi Other [facility] Other Start: 01-15-2022 Office outpatient ne w 20 minutes Angelica Rossi [facility] Start: 06-29-2021 End: 06-29-2021 Patient encounter procedure Denise BUTT [facility] [place] Start: 06-16-2021 End: 06-16-[address] ALYSHA العلي Facility:[facility] Start: 05-19-2021 End: 05-19-2021 Patient encounter procedure Denise BUTT [facility] [place] Start: 05-19-2021 End: 05-20-2021 ambulatory RAFAELA BURR Facility:[facility] Start: 05-19-2021 End: 05-20-[address] ALYSHA العلي Facility:[facility] Start: 02-11-2021 End: 02-11-[address] ALYSHA العلي Facility:[facility] Start: 02-09-2021 End: 02-09-2021 ambulatory RAFAELA Oscar LENO Facility:[facility] Procedures Date Procedure Procedure Detail Performing Clinician Start: 08-11-2023 Plain X-ray of right wrist Start: 07-28-2023 X-ray of left foot MD Alysha العلي Work Phone: Start: 07-28-2023 Plain X-ray of left shoulder MD Alysha العلي Work Phone: Start: 06-16-2021 Excisional biopsy Denise FILOMENA Comment on above: left lower extremity Closed fracture of l eft orbital floor Denise FILOMENA Esophagogastroduodenoscopy Vladislav BUTT Plan of Treatment Date Care Activity Detail Author Start: 07-24-2033 DTaP,Tdap and Td Vaccines (2 - Td or Tdap) DTaP,Tdap and Td Vaccines (2 - Td or Tdap) [facility] Start: 05-24-2024 Adult BMI Screening Adult BMI Screen ing [facility] Start: 10-15-2023 Influenza vaccination Influenza Vacc ine [facility] Start: 08-11-2023 Plain X-ray of right wrist XR wrist RT min 3V* [facility] Start: 08-11-2023 XR Wrist - right GE 3 Views [facility] Start: 07-28-2023 Patient referral [facility] Work Phone: Start: 07-28-2023 X-ray of left foot XR foot LT min 3V * [facility] Start: 07-28-2023 XR Foot - left GE 3 Views [facility] Start: 07-28-2023 Plain X-ray of left shoulder XR shoulder LT min 2V* [facility] Start: 07-28-2023 XR Shoulder - left Views [facility] Start: 1999 Adult BMI Follow Up Plan Adult BMI Follow Up Plan [facility] Start: 1993 Depression Screening Depression Scre stevo [facility] Start: 1993 Tobacco Screening Tobacco Screening [facility] Patient referral [facility] Work Phone: Immunizations Immunization Date Immunization Notes Care Provider Fa parisaty NEGATED: Highlighted row has not occurred!05-19-2021 influenza virus vaccine, unspecified formulation Denise BUTT [facility] Payers Date Payer Category Payer Self-pay [id number] 2018 Unknown [employer] [place] [employer] [id number] 2018-Present [phone] [address] [place] [address] [id number] 1981 Unknown [id number] 1981 Unknown [id number] 1981 Unknown [id number] 1981 Unknown [id number] 1981 Unknown [id number] 1981 Unknown [id number] 1959 Unknown [id number] Unknown [id number] Unknown [id number] Unknown [id number] Unknown [id number] Social History Date Type Detail Facility Start: 05-19-2021 End: 08-02-2023 Tobacco smoking status Ex-smoker (finding) [facility] Tobacco smoking status Never [facility] Start: 11-23-2023 Sex Assigned At Male [facility] Start: 01-15-2022 Tobacco smoking stat [facility] Never smoked tobacco (finding) [facility] Start: 1980 Sex Assigned At Male F [facility] History of tobacco use [facility] History of tobacco use Cigarette Smoker P [facility] History of tobacco use Passive smoker Pro [facility] Start: 11-23-2023 Tobacco use and exposure Smokeless tobacco non-user [facility] Start: 11-23-2023 Alcoholic beverage intake Ex-drinker (finding) [facility] Start: 11-23-2023 History of Social function [facility] Start: 1980 Sex assigned at Not on file P [facility] Clinical Notes 02-13-2021 to 11-23-2023 Assessment & Plan Note - Dariana Rm MD - 11/23/2023 9:27 AM EDTAssessment & Plan Note - Dariana Rm MD - 11/23/2023 9:27 AM EDTMjakob Rm MD - 11/23/2023 8:40 AM EDT Note Date & Type Note Facility 11-23-2023 Evaluation + Plan note Associated Problem(s): Portal vein thrombosis He completed 6 months of anticoagulation. He is following up with heme-onc. There is chronic findings with collateral circulation around the portal vein occlusion. Per the patient that all his hypercoagulability testing so far is negative. I tried to reach out to his heme-onc to discuss further plans. I am okay with him stopping anticoagulation since he completed 6-month to complete his hypercoagulability testing. I am okay with low-dose anticoagulation and or aspirin. [facility] 11-23-2023 Miscellaneous Notes Associated Problem(s): Portal vein thrombosis He completed 6 months of anticoagulation. He is following up with heme-onc. There is chronic findings with collateral circulation around the portal vein occlusion. Per the patient that all his hypercoagulability testing so far is negative. I tried to reach out to his heme-onc to discuss further plans. I am okay with him stopping anticoagulation since he completed 6-month to complete his hypercoagulability testing. I am okay with low-dose anticoagulation and or aspirin. documented in this encounter [facility] 11-23-2023 History of Present illness Narrative Images from the original note were not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 Mcdaniel APRN Attending Provider Active St art: August 02, 2023 End: August 02, 2023 Alysha العلي MD Primary Care Provider Active Start: August 02, 2023 End: August 02, 2023 Team Status: Inactive Member Role Status Dates Alysha العلي MD Primary Care Provider Active Start: August 11, 2023 End: August 11, 2023 David Lopez DO Attending Provider Active S tart: August 11, 2023 End: August 11, 2023 Team Status: Inactive Member Role Status Dates Alysha العلي MD Primary Care Provider Active Start: September 08, 2023 End: September 08, 2023 David Lopez DO Attending Provider Active S tart: September 08, 2023 End: September 08, 2023 Team Status: Inactive Member Role Status Dates Alysha العلي MD Primary Care Provider Active Start: October 20, 2023 End: October 20, 2023 Dvaid Lopez DO Attending Provider Active S tart: October 20, 2023 End: October 20, 2023 Cash Management Coordinator Relationship Specialty Start Date End Date Alysha العلي MD [address] [phone] PCP - General Family Medicine 11/03/23 Team Status: Inactive Member Role Status Dates Alysha العلي MD Primary Care Provider Active Start: December 08, 2023 End: December 08, 2023 David Lopez DO Attending Provider Active S tart: December 08, 2023 End: December 08, 2023 Goals (unrecognized section and content) Goals may be documented in a n alternate section FOR RECORDS PERTAINING TO PATIENTS WHO ARE OR HAVE BEEN ENROLLED IN A CHEMICAL DEPENDENCY/SUBSTANCEABUSE PROGRAM, SOME INFORMATION MAY BE OMITTED. This clinical summary was aggregated from multiple sources. Caution should be exercised in using it in the provision of clinical care. This summary normalizes information from multiple sources, and as a consequence, information in this document may materially change the coding, format and clinical context of patient data. In addition, data may be omitted in some cases. CLINICAL DECISIONS SHOULD BE BASED ON THE PRIMARY CLINICAL RECORDS. [employer] [facility]. provides no warranty or guarantee of the accuracy or completeness of information in this document.
[2024-01-08 12:09] LABS: Antithrombin Activity 115 % (75-135); Protein C-Functional 125 % (73-180)
== END 2024-01-06 09:24 | disposition home or self-care (01) ==
LOC: LAB 09:25
PROVIDERS: PCP Family Medicine; Visit Provider Internal Medicine Hematology & Oncology
DX: I81 Portal vein thrombosis (principal); D68.9 Coagulation defect, unspecified
CPT/HCPCS: 36415; 85300; 85303

== ENCOUNTER 2024-01-30 07:30 | Outpatient (RCR) | payer OTHER, SELFPAY | END 2024-01-31 08:18 | disposition home or self-care (01) | LOC: HEMC 07:30 | PROVIDERS: PCP Family Medicine; Visit Provider Internal Medicine Hematology & Oncology | DX: I81 Portal vein thrombosis (principal); Z87.440 Personal history of urinary (tract) infections; Z87.891 Personal history of nicotine dependence; D68.9 Coagulation defect, unspecified; E66.3 Overweight; R10.9 Unspecified abdominal pain | CPT/HCPCS: G0463 ==

== ENCOUNTER 2024-02-16 15:04 | Outpatient (OUT) | payer OTHER, SELFPAY ==
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
[2024-02-16 15:44] LABS: Alanine Aminotransferase 50 U/L (16-63); Albumin Level 3.5 g/dL (3.4-5.0); Alkaline Phosphatase 68 U/L (46-116); Anion Gap 9.6; Aspartate Amino Transferase 24 U/L (15-37); BUN Creatinine Ratio 13.1; Bilirubin Direct 0.2 mg/dL (0.0-0.2); Calcium 9.3 mg/dL (8.5-10.1); Carbon Dioxide 30.2 mmol/L (21.0-32.0); Chloride 106 mmol/L (98-107); Estimated GFR (African America >60 (>=60 mL/min/1.73m^2); Estimated GFR (Non-African Ame >60 (>=60 mL/min/1.73m^2); Globulin 3.4 g/dL; Glucose 190 mg/dL (74-106); Potassium 3.8 mmol/L (3.5-5.1); Sodium 142 mmol/L (136-145); Total Protein 6.9 g/dL (6.4-8.2)
== END 2024-02-16 15:05 | disposition home or self-care (01) ==
LOC: LAB 15:05
PROVIDERS: PCP Family Medicine; Visit Provider Internal Medicine Hematology & Oncology
DX: I81 Portal vein thrombosis (principal); D68.9 Coagulation defect, unspecified
CPT/HCPCS: 36415; 80053; 82248

== ENCOUNTER 2025-01-28 08:33 | Outpatient (RCR) | payer OTHER, SELFPAY | END 2025-02-12 23:59 | disposition home or self-care (01) | LOC: HEMC 08:33 | PROVIDERS: PCP Family Medicine; Visit Provider Internal Medicine Hematology & Oncology | DX: I81 Portal vein thrombosis (principal); D68.9 Coagulation defect, unspecified; E66.3 Overweight; Z68.41 Body mass index [BMI] 40.0-44.9, adult; R10.9 Unspecified abdominal pain | CPT/HCPCS: G0463 ==